=== PATIENT | male | born 1975 ===

== ENCOUNTER 2022-09-26 09:26 | Outpatient (REF) | payer OTHER, SELFPAY ==
[2022-09-26 11:13] LABS: MANUAL DIFF FLAG NO
[2022-09-26 11:42] LABS: Basophils Percent Auto 0.6 % (0-2); Eosinophils Absolute Auto 0.1 X10*3/uL (0.0-0.4); Eosinophils Percent Auto 1.4 % (0-4); Hematocrit 49.9 % (42.0-52.0); Hemoglobin 16.5 g/dl (14.0-18.0); Imm Gran Abs Auto 0.02 X10*3/uL (0.00-0.03); Imm Gran Pct Auto 0.4 % (0.0-0.4); Lymphocytes Absolute Auto 1.6 X10*3/uL (1.2-4.9); Lymphocytes Percent Auto 32.3 % (20-40); Mean Corpuscular HGB Conc 33.1 g/dl (31.0-36.0); Mean Corpuscular Hemoglobin 29.5 pg (27.0-33.0); Mean Corpuscular Volume 89.1 fL (80.0-98.0); Mean Platelet Volume 9.9 fL (9.4-12.4); Monocytes Absolute Auto 0.6 X10*3/uL (0.1-1.2); Neutrophils Absolute Auto 2.6 x10*3/uL (2.0-8.3); Neutrophils Percent Auto 53.3 % (45-73); Platelet Count 203 X10*3/uL (160-400); Red Cell Distribution Width 13.1 % (11.0-16.0); White Blood Count 4.8 X10*3/uL (4.8-10.8)
[2022-09-26 13:40] LABS: Estimated Average Glucose 103 mg/dL; Hemoglobin A1c % 5.2 %
[2022-09-26 15:15] LABS: Alanine Aminotransferase 19 U/L (0-40); Albumin Level 4.6 g/dL (3.5-5.0); Alkaline Phosphatase 68 U/L (39-117); Anion Gap 17 (12-20); Aspartate Amino Transferase 17 U/L (5-37); Bilirubin Direct 0.3 mg/dL (0.0-0.5); Bilirubin Total 0.9 mg/dL (0.0-1.0); Blood Urea Nitrogen 12 mg/dL (9-16); Calcium 9.8 mg/dL (8.4-10.2); Carbon Dioxide 25 mmol/L (22-29); Chloride 103 mmol/L (96-108); Cholesterol 129 mg/dL; Estimated Glomerular Filt Rate > 60; Glucose Random 85 mg/dL (60-115); HDL Cholesterol 51 mg/dL; LDL Cholesterol Calculated 68 mg/dl; Potassium 3.5 mmol/L (3.3-5.1); Sodium 141 mmol/L (135-145); Total Protein 7.4 g/dL (6.5-8.0); Triglycerides 52 mg/dL
[2022-09-27 04:20] LABS: HIV AB/AG Nonreactive (Nonreactive); HIV Num 1 0.05 S/CO (0.00-0.99)
[2022-09-27 04:41] LABS: ~Hepatitis C Antibody Nonreactive (Nonreactive)
== END 2022-09-26 09:27 | disposition home or self-care (01) ==
LOC: HO.HHCL 09:26
PROVIDERS: Visit Provider Family Medicine
DX: Z00.00 Encounter for general adult medical examination without abnormal findings (principal); Z11.4 Encounter for screening for human immunodeficiency virus [HIV]; Z11.3 Encounter for screening for infections with a predominantly sexual mode of transmission; H91.93 Unspecified hearing loss, bilateral; E78.5 Hyperlipidemia, unspecified; Z13.1 Encounter for screening for diabetes mellitus
CPT/HCPCS: 36415; 80048; 80061; 80076; 83036; 85025; 86803; 87389

== ENCOUNTER 2022-12-08 08:51 | Outpatient (REF) | payer OTHER, SELFPAY ==
[2022-12-12 12:54] LABS: Testosterone, Total 534 ng/dL (250-1100)
== END 2022-12-08 08:52 | disposition home or self-care (01) ==
LOC: HO.HHCL 08:51
PROVIDERS: Visit Provider Family Medicine
DX: N52.9 Male erectile dysfunction, unspecified (principal)
CPT/HCPCS: 36415; 84403

== ENCOUNTER 2023-10-12 10:54 | Outpatient (REF) | payer OTHER, SELFPAY ==
[2023-10-12 12:02] LABS: Cholesterol 140 mg/dL (<200); HDL Cholesterol 43 mg/dL (>40); LDL Cholesterol Calculated 83 mg/dL (<100); Triglycerides 70 mg/dL (<150)
[2023-10-12 12:25] LABS: HIV AB/AG Nonreactive (Nonreactive); HIV Num 1 0.05 S/CO (0.00-0.99)
== END 2023-10-12 10:55 | disposition home or self-care (01) ==
LOC: HO.HHCL 10:54
PROVIDERS: Visit Provider Family Medicine
DX: Z00.00 Encounter for general adult medical examination without abnormal findings (principal); Z11.3 Encounter for screening for infections with a predominantly sexual mode of transmission
CPT/HCPCS: 36415; 80061; 87389

== ENCOUNTER 2024-09-05 13:45 | Outpatient (AMB) | payer OTHER, SELFPAY ==
[2024-09-05 14:08] VITALS: BP 104/60; PULSE 83; TEMP 37; O2SAT 97; BMI 26.6
--- NOTE | 2024-09-05 14:08 | MHC.OFFWIV ---
Intake Vital Signs 09/05/24 14:08 Height 5 ft 7 in Weight 170 lb BMI 26.6 BP 104/60 Blood Pressure Location Rt brachial Position Sitting Pulse 83 Pulse Source Pulse Oximeter Temp 98.6 F Temp Source Oral Pulse Oximetry (%) 97 Oxygen Delivery Method Room Air Intake Visit Reasons: EP-headaches Intake Note: presents with left hip pain for about 4 years, increases when standing- denies injury Allergies No Known Allergies Allergy (Verified 09/05/24 14:11) Do you need a note to return to daycare/school/sports/work: Yes Return to daycare/school/sports/work/other note: work HPI HPI Comments History of Present Illness Details [facility] video inpatient care manager rn used for this visit History - The patient is a 48-year-old hearing impaired male presenting with left hip pain and tightness. - The patient reports left hip pain and tightness, which initially occurred in 2021, with an x-ray at that time showing no significant findings. - The pain intensified in February or March of this year and has progressively worsened. - The pain is localized to the lateral left hip, does not radiate to the groin, and is exacerbated by standing or walking. - The patient has not attempted any medication for relief. Physical Exam General: Cooperative, healthy appearing, comfortable, no acute distress and well developed Orientation: Patient oriented x3 Limitations: hearing impaired Head: Normal to inspection Ears: impaired Nose: Normal External nose present Face and sinus: Normal facial exam Mouth: normal, moist oral mucosa Eyes: Appearance normal, both eyes and all related structures Neck: Normal visual inspection and Yes full ROM Respiratory: Normal respiratory effort Skin: no rashes or lesions noted Neuro: Patient oriented x3, gait normal Extremities: moving all extremities normally, TTP lateral left hip Review of Systems Const All systems reviewed & are unremarkable except as noted in HPI and below Physical Exam Vital Signs: Last Vital Signs Temp 98.6 F 09/05/24 14:08 Pulse 83 09/05/24 14:08 BP 104/60 09/05/24 14:08 Pulse Ox 97 09/05/24 14:08 Oxygen Delivery Method Room Air 09/05/24 14:08 BMI result Body Mass Index 26.6 Assessment & Plan Assessment & Plan (1) Trochanteric bursitis, left hip: Code(s): M70.62 - Trochanteric bursitis, left hip Plan: Patient was informed and verbally consented to the use of an ambient scribe for clinic note documentation during this visit Left Hip Trochanteric Bursitis - Recommended rest, ice application, and Aleve 220 mg, 2 tablets every 12 hours for 3 to 4 days then use as needed. - Advised to ice the area for 20 minutes several times throughout the day. - Follow-up with primary care physician on September 19 for reassessment and possible x-ray if no improvement. - Discussed potential use of oral steroids or steroid injection if symptoms persist. Coding Level of Care Code New Pt Level 3 (70018) Diagnoses Trochanteric bursitis, left hip M70.62
--- OUTSIDE RECORDS SUMMARY | 2024-09-05 14:58 | XMS_ITS | Encounter Summary ---
Author Organization [employer] Address [address] [facility] [address] [address] [facility] [address] 7[address] [place] [address] Care Team Providers Care Faculty Physician Name Role Phone Sophie Magallon MD Primary Care Provider [phone] Favian Adan MD Unavailable [phone] Encounter Details Date Type Department Care Team (Late st Contact Info) Description 01/04/2024 Telephone [facility] [address], [place] [phone] Sophie Magallon MD [address] [place] [address] Social History Tobacco Use Types Packs/Day Years Used Date Smoking Tobacco: Never Smokeless Tobacco: Never Alcohol Use Standard Drinks/Week Comments Yes 0 (1 standard drink = 0.6 oz pur e alcohol) Depression Answer Date Recorded Patient Health Questionnaire-9 Score 1 10/21/2023 Patient Health Questionnaire-9 Score 1 10/21/2023 Last PHQ-9: Questionnaire Data Not on file 0 10/21/2023 Housing Stability Answer Date Recorded What is your housing situation today? I have emmanuel carbajal 12/12/[address] you li ve. Do you have problems with any of the following? None of the above 12/12/2022 Food Insecurity Answer Date Recorded Within the past 12 months, y ou worried that your food would run out before you got money to buy more: Never True 12/12/2022 Within the past 12 months,th e food you bought just didn't last and you didn't have enough money to get more: Never True Transportation Answer Date Recorded In the past 12 months, has l ack of transportation kept you from medical appts, meetings, work or from getting things needed for daily living? No 04/30/2023 Utilities Answer Date Recorded In the past 12 months, has t he electric, gas, oil or water company threatened to shut off services in your home? No 12/12/2022 Depression Answer Date Recorded Patient Health Questionnaire-2 Score 1 10/21/2023 Internet Access Answer Date Recorded Internet Access Q1 Yes 10/26/2023 Internet Access Q2 Not on file 10/26/2023 Sex and Gender Information Value Date Recorded Sex Assigned at Male 09/22/2022 10:48 AM EDT Legal Sex Male 2:21 PM EDT Gender Identity Male 09/22/2022 10:48 AM EDT Sexual Orientation Orozco 10/01/2022 4: 26 PM EDT documented as of this encounter Miscellaneous Notes * Telephone Encounter - Alanis Cano - 01/04/2024 12:47 PM EST Tc from pt requesting a callback he's been waiting since 12/29/2023 documented in this encounter Plan of Treatment Upcoming Encounters Date Type Department Care Team (Late st Contact Info) Description 09/14/2024 3:30 PM EDT Office Visit [facility] [address] [place] [address] Sophie Magallon MD [address] [place] [address] 09/16/2024 8:00 AM EDT Office Visit [facility] AD[facility] DENTAL [address] [place] [address] Calli, Odilia [address] [place] [address] documented as of this encounter Visit Diagnoses Not on filedocumented in this encounter Additional Health Concerns Assessment Noted Time PHQ-9 Depression Total Score: 1 10/21/19 24 11:21 AM EDT documented as of this encounter Care Teams Faculty Physician Relationship Specialty Start Date End Date Sophie Magallon MD [address] [place] [address] PCP - General Family Medicine 07/31/22 Favian Adan MD [address] [facility] [place] [address] Otolaryngology 03/07/24 Dr. Dagmar Albright [facility] [place], [place] Gastroenterology 03/07/24 documented as of this encounter
--- OUTSIDE RECORDS SUMMARY | 2024-09-05 14:58 | XMS_ITS | Clinical Summary ---
Author Organization [facility] Address [address] [place] [address] Care Team Providers Care Autobody Technician Name Role Phone Sophie Magallon Reji Primary Care Provider Allergies No known active allergies Medications omeprazole (PriLOSEC) 20 mg capsule 12/29/2022 Active rosuvastatin (CRESTOR) 5 mg tablet Take 5 mg by mouth daily. 09/22/2022 Active ipratropium (ATROVENT) 0.03% nasal spray 01/26/2023 Active Social History Tobacco Use Types Packs/Day Years Used Date Smoking Tobacco: Never Smokeless Tobacco: Never Tobacco Cessation:Counseling Given: Not Answered Sex and Gender Information Value Date Recorded Sex Assigned at Not on file Legal Sex Male 1:30 PM EST Gender Identity Not on file Sexual Orientation Not on file Last Filed Vital Signs Vital Sign Reading Time Taken Comments Blood Pressure 126/85 04/29/2023 10:32 AM EST Pulse 80 04/29/2023 10:32 AM EST Temperature - - Respiratory Rate - - Oxygen Saturation - - Inhaled Oxygen Concentration - - Weight - - Height - - Body Mass Index - - Plan of Treatment Health Maintenance Due Date Last Done Comments Cologuard 1975 Colon Cancer Screening 1975 Colonoscopy 1975 FOBT / Fit Test 1975 HIV Screening 1975 Sigmoidoscopy 1975 Hepatitis B Vaccines (3 of 3 - 19+ 3-dose series) 06/04/2023 01/05/2023, 12/03/2022 COVID-19 Vaccine (2023-2 5 season) 2023 Alcohol/Substance Use Screening 02/24/2024 Influenza Vaccine (#1) 2024 12/03/2022 DTaP,Tdap,and Td Vaccines (2 - Td or Tdap) 12/03/2032 12/03/2022 RSV Vaccine (60+ years old a nd patients) (1 - 1-dose 75+ series) 2052 Pneumococcal Vaccine: Pediatric (0-5 Years) and At-Risk Patients (6-50 Years) Aged Out No longer eligible based on patient's age to complete this topic Insurance [address] [place], [place] [phone] [place] [address] Care Teams Autobody Technician Relationship Specialty Start Date End Date [place], Sophie Mendoza [address] [place] [id number] PCP - General Family Medicine 01/28/23
== END 2024-09-05 14:41 | disposition home or self-care (01) ==
PROVIDERS: PCP Family Medicine; Visit Provider Physician Assistant
DX: M70.62 Trochanteric bursitis, left hip (principal)

== ENCOUNTER → 2024-09-05 13:45 | Outpatient (BNVA) | payer OTHER, SELFPAY | PROVIDERS: PCP Family Medicine; Visit Provider Physician Assistant | DX: M70.62 Trochanteric bursitis, left hip (principal) | CPT/HCPCS: 99202 ==

== ENCOUNTER 2024-09-14 15:55 | Outpatient (REF) | payer OTHER, SELFPAY ==
--- NOTE | ~2024-09-14 | XR_ITS ---
EXAMINATION: XR CERVICAL SPINE CLINICAL INFORMATION: Chronic occipital headaches COMPARISON: None available. TECHNIQUE: 3 views of the cervical spine were obtained. FINDINGS: Cervicothoracic junction is obscured by over lapping bony and soft tissues. There are no prevertebral soft tissue or bony abnormalities demonstrated. No compression fractures or subluxations are identified. Alignment is maintained at the atlanto-axial articulation. The disc spaces are preserved. No endplate changes are seen. The prevertebral soft tissues are normal. The foramina are patent. XR/XR cervical spine 3V IMPRESSION: Unremarkable examination. Electronically signed by: Kal King MD 09/14/2024 04:31 PM EDT RP
--- NOTE | ~2024-09-14 | XR_ITS ---
EXAMINATION: XR HIP, LEFT CLINICAL INFORMATION: Chronic left lateral hip pain COMPARISON: None available. TECHNIQUE: Two views of the left hip. FINDINGS: There is mild axial joint space narrowing. Lateral Center edge angle measured 53 There are no other abnormalities in the hip. degrees. XR/XR hip LT min 2V IMPRESSION: Coxa profunda. Mild axial joint space narrowing. Electronically signed by: Kal King MD 09/14/2024 04:30 PM EDT
--- OUTSIDE RECORDS SUMMARY | 2024-09-14 15:57 | XMS_ITS | Clinical Summary ---
Author Organization [facility] Address [address] [place] [address] Care Team Providers Care Rhinologist Name Role Phone Sophie Magallon Reji Primary [...] to complete this topic Insurance [address] [place], [place] [id number] [place] [address] Care Teams Rhinologist Relationship Specialty Start Date End Date [place], Sophie Mendoza [address] [place] [phone] PCP - General Family Medicine 01/28/23
--- OUTSIDE RECORDS SUMMARY | 2024-09-14 15:58 | XMS_ITS | Clinical Summary ---
Author Organization [facility] Address [address] [address] Phone Care Team Providers Care Lead Athlete Name Role Phone Sophie Magallon MD Primary Care Provi sandro Allergies No known active allergies Medications omeprazole (PRILOSEC) 20 MG tablet Take 20 mg by mouth daily. Active rosuvastatin (CRESTOR) 5 MG tablet Take 5 mg by mouth daily. Active senna (SENOKOT) 8.6 mg tablet Take 1 tablet by mouth daily. Active azelastine (ASTELIN) 137 mcg (0.1 %) nasal spray USE 2 SPRAYS IN EACH NOSTRIL EVERY DAY NEEDED FOR ALLERGIC RHINITIS Active Social History Tobacco Use Types Packs/Day Years Used Date Smoking Tobacco: Never Smokeless Tobacco: Never Tobacco Cessation:Counseling Given: Not Answered Alcohol Use Standard Drinks/Week Comments Not Currently 0 (1 standard drink = 0.6 oz pur e alcohol) Education Answer Date Recorded Are you interested in more education? Not on patricia e 11/26/2022 Are you concerned about learning? Not on file 11/26/2022 No 11/26/2022 No 11/26/2022 Digital Access Answer Date Recorded No 11/26/2022 No 11/26/2022 Reliable internet access at home? Not on file 11/26/2022 Device with a working camera? Not on file Intimate Partner Violence Answer Date R ecorded Are you denied basic needs s uch as food, clothing, or medical care? No 03/19/2023 In the past 12 months have y ou been in a relationship with a person who hurts, threatens, or tries to control you? No 03/19/2023 Are you denied basic needs s uch as food, clothing, or medical care? No 03/19/2023 In the past 12 months have y ou been in a relationship with a person who hurts, threatens, or tries to control you? No 03/19/2023 Sex and Gender Information Value Date Recorded Sex Assigned at Not on file Legal Sex Male 11:47 AM EDT Gender Identity Not on file Sexual Orientation Not on file Last Filed Vital Signs Vital Sign Reading Time Taken Comments Blood Pressure 114/66 03/19/2023 8:55 AM EST Pulse 85 03/19/2023 8:55 AM EST Temperature 36 C (96.8 F) 03/19/2023 7:02 AM EST Respiratory Rate 16 03/19/2023 8:55 AM EST Oxygen Saturation 97% 03/19/2023 8:55 AM EST Inhaled Oxygen Concentration - - Weight 77.1 kg (170 lb) 05/20/2024 10:48 AM EDT Height 170.2 cm (5' 7 ) 05/20/2024 10:48 AM EDT Body Mass Index 26.63 05/20/2024 10:48 AM EDT Plan of Treatment Health Maintenance Due Date Last Done Comments DEPRESSION SCREENING 1989 HEPATITIS C SCREENING 10/24/1995 HIV ONE-TIME SCREENING (18-6 5 YEARS) 10/24/1995 SCREENING FOR DIABETES 2012 COLOGUARD 2022 FIT TEST 2022 FOBT 2022 SIGMOIDOSCOPY 2022 VIRTUAL COLONOSCOPY 2022 COVID-19 VACCINE (1 - 2023-2 5 season) 2023 LIPID PANEL 10/11/2028 10/12/2023 Adult Td,Tdap Booster 12/03/2032 12/03/2022 COLONOSCOPY 03/19/2033 03/19/2023 COLORECTAL CANCER SCREENING 03/19/2033 SMOKING STATUS SCREENING (On ce After 26 Yrs) Completed 05/20/2024 HEPATITIS A VACCINES Aged Out No long er eligible based on patient's age to complete this topic HIB VACCINES Aged Out No longer eligi ble based on patient's age to complete this topic MENINGOCOCCAL VACCINES (ACWY) Aged Out No longer eligible based on patient's age to complete this topic MENINGOCOCCAL VACCINES (B) Aged Out N o longer eligible based on patient's age to complete this topic PNEUMOCOCCAL VACCINES (0-49 years) Aged Out No longer eligible based on patient's age to complete this topic Medical Devices Not on file Procedures Procedure Name Priority Date/Time Associated Diagnosis Comments ENDOSCOPY, COLON 03/19/2023 6:56 AM EST from Last 3 Months or Most Recently Relevant to Health Maintenance Results * ENDOSCOPY, COLON (03/19/2023 6:56 AM EST) Narrative Transcriptions Adama Waddell MD, MPH - 03/19/2023 6:56 AM EST [facility] Patient Name: Paulo Finley Attending MD:: ADAMA WADDELL MD, Procedure Date: 03/19/2023 6:56 AM Date of : 1975 Age: 47 Admit Type: Outpatient Gender: Male Room: [place] [address] Referring MD: Sophie Magallon MD Exam Type: Colonoscopy Indications: Screening for colorectal malignant neoplasm, Constipation Medications: Monitored Anesthesia Care Procedure: Informed consent was obtained from the patientafter discussion of the indications, limitations, alternatives, benefits, and risks of the procedure. Risks specifically discussed include but are not limited to medication reactions, missed lesions, bleeding, perforation, or the need for emergent surgery. Throughout the procedure, the patient's blood pressure, pulse, end-tidal CO2, and oxygensaturations were monitored continuously. The Colonoscope was introduced through the anus and advanced to the cecum, identified by appendiceal orifice and ileocecal valve. The colonoscopy was performed without difficulty. The patient tolerated the procedure well. The quality of the bowel preparation was evaluated using the BBPS (BostonBowel Preparation Scale) with scores of: Right Colon = 3, Transverse Colon = 3 and Left Colon = 3 (entiremucosa seen well with no residual staining, smallfragments of stool or opaque liquid). The total BBPS score equals 9. The ileocecal valve, appendiceal orifice, and rectum were photographed. Complications: No immediate complications. Findings: The perianal and digital rectal examinations were normal. The rectum, sigmoid colon, descending colon, transverse colon, ascending colon and cecumappeared normal. No additional abnormalities were found onretroflexion. Impression: - The rectum, sigmoid colon, descending colon, transverse colon, ascending colon and cecum arenormal. - No specimens collected. Recommendation: - Repeat colonoscopy in [address] Adama Waddell ADAMA WADDELL MD 03/19/2023 8:52:02 AM This report has been signed electronically. Number of Addenda: 0 Note Initiated On: 03/19/2023 6:56 AM Procedure Code(s): --- Professional --- 34234, Colonoscopy, flexible; diagnostic, including collection of specimen(s) by brushing or washing, when performed (separateprocedure) --- Technical --- 65840, Colonoscopy, flexible; diagnostic, including collection of specimen(s) by brushing or washing, when performed (separateprocedure) Diagnosis Code(s): --- Professional --- Z12.11, Encounter for screening for malignantneoplasm of colon K59.00, Constipation, unspecified --- Technical --- Z12.11, Encounter for screening for malignantneoplasm of colon K59.00, Constipation, unspecified CPT copyright 2021 [employer]. All rights reserved. The codes documented in this report are preliminary and upon wash plant operator reviewmay be revised to meet current compliance requirements. Procedure Date: 03/19/2023 6:56:[address] [place] [address] Sophie Magallon MD GI PROCEDURE ORDERA BLES Edited Result - Final from Last 3 Months or Most Recently Relevant to Health Maintenance Insurance [address] MEDICARE REPLACEMENT [address] [place] [address] [place] [address] [address] MEDICARE [place] [address] [address] MEDICARE REPLACEMENT Care Teams Lead Athlete Relationship Specialty Start Date End Date [place], Sophie Jiménez MD [address] [place] [address] PCP - General Family Medicine 11/26/22 Additional Source Comments The information contained in this document represents components of the legal health record. It is not the complete legal health record.[facility]
== END 2024-09-14 15:56 | disposition home or self-care (01) ==
LOC: HO.HHCX 15:55
PROVIDERS: Visit Provider Family Medicine
DX: M25.552 Pain in left hip (principal); G89.29 Other chronic pain; R51.9 Headache, unspecified
CPT/HCPCS: 72040; 73502

== ENCOUNTER → 2024-09-14 15:56 | Outpatient (BNV) | payer OTHER, SELFPAY | PROVIDERS: Visit Provider Radiology Diagnostic Radiology | DX: M24.252 Disorder of ligament, left hip (principal); M54.81 Occipital neuralgia | CPT/HCPCS: 72040; 73502 ==

== ENCOUNTER 2024-10-10 09:09 | Outpatient (REF) | payer OTHER, SELFPAY ==
--- OUTSIDE RECORDS SUMMARY | 2024-10-10 09:37 | XMS_ITS | Clinical Summary ---
Author Organization [facility] Address [address] [place] [address] Care Team Providers Care Patrol Man Name Role Phone Sophie Magallon Reji Primary Care Provider [phone] Allergies No known active allergies Medications omeprazole [...] to complete this topic Insurance [address] [place], [place] [id number] [place] [address] Care Teams Patrol Man Relationship Specialty Start Date End Date [place], Sophie Mendoza [address] [place] [phone] PCP - General Family Medicine 01/28/23
--- OUTSIDE RECORDS SUMMARY | 2024-10-10 09:37 | XMS_ITS | Encounter Summary ---
Author Organization [employer] Address [address] [facility] [address] [place] [address] Care Team Providers Care Pipe Out Worker Name Role Phone Sophie Magallon MD Primary Care Provider [phone] Favian Adan MD Unavailable [phone] Encounter Details Date Type Department Care Team (Late st Contact Info) Description 01/04/2024 Telephone [facility] [address] [place], [place] [phone] Sophie Magallon MD [address] [place] [address] Social History Tobacco Use Types Packs/Day Years [...] documented in this encounter Plan of Treatment Not on file documented as of this encounter Visit Diagnoses Not on filedocumented in this encounter Additional Health Concerns Assessment Noted Time PHQ-9 Depression Total Score: 1 10/21/19 24 11:21 AM EDT documented as of this encounter Care Teams Pipe Out Worker Relationship Specialty Start Date End Date Sophie Magallon MD [address] [place] [address] PCP - General Family Medicine 07/31/22 Favian Adan MD [address] [place] [address] Otolaryngology 03/07/24 Dr. Dagmar Albright [facility]asteroenterology [place], [place] Gastroenterology 03/07/24 documented as of this encounter
--- OUTSIDE RECORDS SUMMARY | 2024-10-10 09:37 | XMS_ITS | Clinical Summary ---
Author Organization [facility] Address [address] [address] Phone Care Team Providers Care Jet Dyeing Machine Operator Name Role Phone Sophie Magallon MD Primary [...] MD, MPH - 03/19/2023 6:56 AM EST [facility] Patient Name: Paulo Finley Attending MD:: ADAMA WADDELL MD, Procedure Date: 03/19/2023 6:56 AM Date of : 1975 Age: 47 Admit Type: Outpatient Gender: Male Room: [place] [address] Referring MD: Sophie Magallon MD Exam Type: [...] 6:56 AM Procedure Code(s): --- Professional --- 60103, Colonoscopy, flexible; diagnostic, including collection of specimen(s) by brushing or washing, when performed (separateprocedure) --- Technical --- 29428, Colonoscopy, flexible; diagnostic, including collection of specimen(s) by brushing or washing, when performed (separateprocedure) Diagnosis Code(s): --- Professional --- Z12.11, Encounter for screening for malignantneoplasm of colon K59.00, Constipation, unspecified --- Technical --- Z12.11, Encounter for screening for malignantneoplasm of colon K59.00, Constipation, unspecified CPT copyright 2021 [employer]. All rights reserved. The codes documented in this report are preliminary and upon spring former hand reviewmay be revised to meet current compliance requirements. Procedure Date: 03/19/2023 6:56:[address] [place] [address] Sophie Magallon MD GI PROCEDURE ORDERA BLES Edited Result - Final from Last 3 Months or Most Recently Relevant to Health Maintenance Insurance [address] MEDICARE REPLACEMENT [address] [place] [address] [place] [address] [address] REPLACEMENT [place] [address] MEDICARE REPLACEMENT Care Teams Jet Dyeing Machine Operator Relationship Specialty Start Date End Date [place], Sophie Jiménez MD [address] [place] [address] PCP - General Family Medicine 11/26/22 Additional Source Comments The information contained in this document represents components of the legal health record. It is not the complete legal health record.[facility]
[2024-10-10 12:03] LABS: Alanine Aminotransferase 35 U/L (0-40); Albumin Level 4.6 g/dL (3.5-5.0); Alkaline Phosphatase 87 U/L (39-117); Anion Gap 10 (12-20); Aspartate Amino Transferase 30 U/L (5-37); Blood Urea Nitrogen 16 mg/dL (9-16); Calcium 9.3 mg/dL (8.4-10.2); Carbon Dioxide 30 mmol/L (22-29); Chloride 105 mmol/L (96-108); Cholesterol 142 mg/dL (<200); Estimated Glomerular Filt Rate > 60; HDL Cholesterol 36 mg/dL (>40); Potassium 3.7 mmol/L (3.3-5.1); Sodium 141 mmol/L (135-145); Total Protein 7.4 g/dL (6.5-8.0); Triglycerides 120 mg/dL (<150)
== END 2024-10-10 09:10 | disposition home or self-care (01) ==
LOC: HO.HHCL 09:09
PROVIDERS: PCP Family Medicine; Visit Provider Family Medicine
DX: E78.5 Hyperlipidemia, unspecified (principal)
CPT/HCPCS: 36415; 80048; 80061; 80076

== ENCOUNTER 2024-11-11 08:54 | Outpatient (AMB) | payer OTHER, SELFPAY ==
--- NOTE | 2024-11-11 08:56 | MHC.OFFVIS ---
Vital Signs 11/11/24 08:57 Height 5 ft 7 in Weight 172 lb BMI 26.9 BP 125/65 Blood Pressure Location Lt brachial Position Sitting Pulse 93 Pulse Oximetry (%) 96 Oxygen Delivery Method Room Air Intake Visit Reasons: dysphagia Intake Note: Patient new consult for dysphagia. Patient need sign language Patient cc: swallowing difficulties with schocking sensation. Denies any other GI issues for today. 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 Referred by PCP for further evaluation of dysphagia. The patient reports chronic and intermittent difficulty swallowing that began over a decade ago while living in [place] and has persisted since relocating to the . Symptoms include a bothersome sensation of esophageal and throat closure, associated with regurgitation, feeling of stickiness, and frequent need to expectorate. Swallowing difficulty occurs with both solids and liquids, and is episodic in nature, sometimes resolving for up to a year but then returning. Heartburn is reported, described as a hot, acid sensation localized to the chest, which is partially responsive to omeprazole 20 mg daily taken 30 minutes before eating; adherence has recently improved. Regurgitation of liquids/food particles and postprandial stickiness are also prominent. History notable for constipation in the past, now improved, with current stool frequency every 2?3 days, Haralson type 3?4, without straining or recent rectal bleeding. Appetite is intact, and there is no unexplained weight change or noted nausea/vomiting (other than episodic gastric upset after suboptimal food intake). The patient is frustrated by the chronicity and impact of symptoms. Comorbidities include hyperlipidemia managed with atorvastatin. No diabetes, reported hypertension, or previous GI malignancy. No known drug allergies. Non-GI: Chronic post-nasal drip and nasal/sinus pressure attributed to allergy symptoms, with possible partial response to antihistamines in the past. Evaluated by multiple ENT specialists for persistent sinus issues. No cardiorespiratory comorbidities, prior interventions for testicular swelling in childhood, and no anesthesia complications reported. Patient denies: fever/chills, n/v, appetite changes, unintentional wt loss, ab pain or melena/hematochezia. Social hx: -ETOH use historically moderate, stopped ~2022 out of concern for GI symptoms; no current use -denies recreational drug use -non-smoker - family hx as below -denies personal hx of CA -denies significant cardiopulmonary history -tolerated anesthesia in the past without difficulty. [facility] Medical History (Updated 11/11/24 @ 11:33 by Laura Cadet CNP) Post-nasal drip Testicular abnormality Hyperlipemia Dysphagia Family History (Updated 11/11/24 @ 09:34 by Laura Cadet CNP) Family/Other Family history unknown Review of Systems Const Reports as per HPI ENT Reports as per HPI Card Reports as per HPI Resp Reports as per HPI GI Reports as per HPI Reports as per HPI Physical Exam Vital Signs: Last Vital Signs Pulse 93 11/11/24 08:57 BP 125/65 11/11/24 08:57 Pulse Ox 96 11/11/24 08:57 Oxygen Delivery Method Room Air 11/11/24 08:57 BMI result Body Mass Index 26.9 Const General: healthy appearing, no acute distress and well developed Nutritional Appearance: average body habitus Orientation/consciousness: patient oriented x3 HEENT Head: Yes normal to inspection, Yes normocephalic and Yes atraumatic Face and sinus: Yes normal facial exam Throat: Yes other (postnasal drip ) Eyes General: appearance normal, both eyes and all related structures Neck Neck: Yes normal visual inspection Resp Effort & Inspection: normal respiratory effort, able to speak in complete sentences, no tracheal deviation and symmetric chest movement Auscultation: clear to auscultation bilaterally Cardio Jugular venous distension: no JVD Rate: regular rate Rhythm: regular rhythm Heart sounds: S1 normal heart sound present, S2 normal heart sound present, no gallops and no murmurs Neuro General: patient oriented x3 Gait exam (Neuro): Normal gait present Psych Appearance: grossly normal Mental Status: mental status grossly normal Speech and movement: Normal speech and movement present Affect: normal affect Attitude: cooperative Thought process: Normal thought process present Thought content: Normal thought content present Insight: Good insight present (Psych) Judgement: Good judgement present (Psych) Assessment & Plan Assessment & Plan (1) Dysphagia: Code(s): R13.10 - Dysphagia, unspecified Category: Medical Qualifiers: Dysphagia type: unspecified Qualified Code(s): R13.10 - Dysphagia, unspecified Plan: Multiple-year history with both solids/liquids, associated with regurgitation and heartburn, partial but incomplete response to PPIs, episodic pattern, negative colonoscopy (2023 per pt, outside facility), and no weight loss or alarming features. Additional Testing: -unremakable CMP 10/10/24 ( normal kidney functions, LFTs) -Upper GI series w/ Barium swallow study (esophagram) ordered to evaluate swallowing mechanism, rule out structural or motility disorder. -Consider repeat upper endoscopy (EGD) pending results and access to prior [place] EGD records. Medication Management: -Increase omeprazole to 40 mg daily (single AM dose); reinforce adherence and appropriate administration (30 min pre-meal). -Fiber supplement (Citrucel) recommended for stool regularity, refill requested. Lifestyle Recommendations: -Maintain current alcohol abstinence. -Continue dietary modifications for stool regularity. -Consider [id number] antihistamines or nasal saline as empiric measures for post-nasal drip, though prior response limited. Follow-Up: Reassess in 3 months, or sooner if barium results concerning or symptoms worsen. (2) Post-nasal drip: Code(s): R09.82 - Postnasal drip Category: Medical Plan: Exam findings, patient report of chronic sinus pressure, previous ENT evaluations. Additional Testing:None at this time; ENT involved. Medication Management:OTC antihistamine (per patient preference), nasal steroid discussed, but patient prefers to avoid sprays. Lifestyle Recommendations:Environmental/allergen avoidance as able; symptom monitoring. Follow-Up:As above; revisit symptoms in subsequent GI follow-up as they may overlap with reflux symptoms. Plan Upper GI series order includes request for in person signal and communications maintainer. Written instructions provided on prep for imaging. Follow-up in 3 months after imaging or sooner as needed Time: I spent a total of 60 minutes on the date of encounter which includes: Preparing to see the patient (reviewed previous documentation, test results and medical history) Performing a medically appropriate exam and/or evaluation Ordering medications, tests, and procedures Documenting clinical information in the health record Orders: Orders FL upper GI w air w Ba Swallow Today R13.10 - Dysphagia, unspecified Medications: New omeprazole Take one tablet daily. Best taken 30 minutes before meal 40 mg PO DAILY 90 caps 1RF Coding Level of Care Code New Pt New Pt Level 5 (09366) Patient Type New Diagnoses Dysphagia, unspecified type R13.10 Dysphagia type: unspecified Post-nasal drip R09.82
[2024-11-11 08:57] VITALS: BP 125/65; PULSE 93; O2SAT 96; BMI 26.9
--- OUTSIDE RECORDS SUMMARY | 2024-11-11 09:39 | XMS_ITS | Encounter Summary ---
Author Organization [employer] [facility] Address [address]t [place] [address] Care Team Providers Care Polisher Implant Name Role Phone Sophie Magallon MD Primary Care Provider [phone] Favian Adan MD Unavailable [phone] Encounter Details Date Type Department Care Team (Late st Contact Info) Description 10/22/2022 Orders Only [facility] MEDICINE [address] [place] [address] [phone] Sophie Magallon MD [address] [place] [address] [phone] Abdominal pain, unspecified abdominal location (Primary Dx); Preventative health care; Dyslipidemia; Constipation, unspecified constipation type; Colon cancer screening Social History Tobacco Use Types Packs/Day Years Used Date Smoking Tobacco: Never Smokeless Tobacco: Never Alcohol Use Standard Drinks/Week Comments Yes 0 (1 standard drink = 0.6 oz pur e alcohol) Sex and Gender Information Value Date Recorded Sex Assigned at Male 09/22/2022 10:48 AM EDT Legal Sex Male 2:21 PM EDT Gender Identity Male 09/22/2022 10:48 AM EDT Sexual Orientation Orozco 10/01/2022 4: 26 PM EDT documented as of this encounter Plan of Treatment Not on file documented as of this encounter Visit Diagnoses Diagnosis Abdominal pain, unspecified abdominal location- Primary Preventative health care Routine general medical examination at a health care facility Dyslipidemia Other and unspecified hyperlipidemia Constipation, unspecified constipation type Colon cancer screening Special screening for malignant neoplasms, colon documented in this encounter Care Teams Polisher Implant Relationship Specialty Start Date End Date Sophie Magallon MD [address] [place] [address] [phone] PCP - General Family Medicine 07/31/22 Favian Adan MD [address] [facility] [place] [address] Otolaryngology 03/07/24 Dr. Dagmar Albright [facility] [place], [place] Gastroenterology 03/07/24 documented as of this encounter
--- OUTSIDE RECORDS SUMMARY | 2024-11-11 09:39 | XMS_ITS | Clinical Summary ---
Author Organization [facility] Address [address] [place] [address] Care Team Providers Care Button Riveter Name Role Phone Sophie Magallon Reji Primary Care Provider [phone] Allergies No known active allergies Medications omeprazole [...] - 19+ 3-dose series) 06/04/2023 01/05/2023, 12/03/2022 Alcohol/Substance Use Screening 02/24/2024 COVID-19 Vaccine ( - 2023-2 5 season) 2024 Influenza Vaccine (#1) 2024 12/03/2022 DTaP,Tdap,and Td Vaccines (2 - Td or Tdap) 12/03/2032 12/03/2022 RSV Vaccine (60+ years old a nd patients) (1 - 1-dose 75+ series) 2052 Pneumococcal Vaccine: Pediatric (0-5 Years) and At-Risk Patients (6-50 Years) Aged Out No longer eligible based on patient's age to complete this topic Insurance [address] [place], [place] [id number] [place] [address] Care Teams Button Riveter Relationship Specialty Start Date End Date Rolette, Sophie Mendoza [address] [place] [id number] PCP - General Family Medicine 01/28/23
--- OUTSIDE RECORDS SUMMARY | 2024-11-11 09:39 | XMS_ITS | Encounter Summary ---
Author Organization [employer] [facility] Address [address] [place] [address] [address] [place] [address] Care Team Providers Care Piling Cutter Name Role Phone Sophie Magallon MD Primary Care Provider [phone] Favian Adan MD Unavailable [phone] Encounter Details Date Type Department Care Team (Late st Contact Info) Description 09/15/[address] [facility] MEDICINE [address] [place] [address] Sophie Magallon MD [address] [place] [address] Social History Tobacco Use Types Packs/Day Years Used Date Smoking Tobacco: Never Assessed Sex and Gender Information Value Date Recorded Sex Assigned at Male 09/22/2022 10:48 AM EDT Legal Sex Male 2:21 PM EDT Gender Identity Male 09/22/2022 10:48 AM EDT Sexual Orientation Orozco 10/01/2022 4: 26 PM EDT documented as of this encounter Plan of Treatment Not on file documented as of this encounter Visit Diagnoses Not on filedocumented in this encounter Care Teams Piling Cutter Relationship Specialty Start Date End Date Sophie Magallon MD [address] [place] [address] PCP - General Family Medicine 07/31/22 Favian Adan MD [address] [facility] [place] [address] Otolaryngology 03/07/24 [facility] [place] [facility] 03/07/24 documented as of this encounter
--- OUTSIDE RECORDS SUMMARY | 2024-11-11 09:39 | XMS_ITS | Encounter Summary ---
Author Organization [employer] [facility] Address [address] [place] [address] Care Team Providers Care Buffer Machine Name Role Phone Sophie Magallon MD Primary Care Provider [phone] Favian Adan MD Unavailable [phone] Reason for Visit * Reason Onset Date Comments Error 06/18/2023 Encounter Details Date Type Department Care Team ([facility] st Contact Info) Description 06/18/2023 Telephone [facility] MEDICINE [address] [place], [place] [phone] Sophie Magallon MD [address] [place], [place] [phone] Error Social History Tobacco Use Types Packs/Day Years Used Date Smoking Tobacco: Never Smokeless Tobacco: Never Alcohol Use Standard Drinks/Week Comments Yes 0 (1 standard drink = 0.6 oz pur e alcohol) Housing Stability Answer Date Recorded What is [...] t he electric, gas, oil or water [employer] threatened to shut off services in your home? No 12/12/2022 Sex and Gender Information Value Date Recorded Sex Assigned at Male 09/22/2022 10:48 AM EDT Legal Sex Male 2:21 PM EDT Gender Identity Male 09/22/2022 10:48 AM EDT Sexual Orientation Orozco 10/01/2022 4: 26 PM EDT documented as of this encounter Plan of Treatment Not on file documented as of this encounter Visit Diagnoses Not on filedocumented in this encounter Care Teams Buffer Machine Relationship Specialty Start Date End Date Sophie Magallon MD [address] [place] [address] PCP - General Family Medicine 07/31/22 Favian Adan MD [address] [place] [address] Otolaryngology 03/07/24 Dr. Dagmar Albright [facility]asteroenter[facility] [place], [place] Gastroenterology 03/07/24 documented as of this encounter
--- OUTSIDE RECORDS SUMMARY | 2024-11-11 09:39 | XMS_ITS | Encounter Summary ---
Author Organization [employer] [facility] Address [address] 7t [place] [address] Care Team Providers Care Manufacturing Project Manager Name Role Phone Sophie Magallon MD Primary Care Provider [phone] Favian Adan MD Unavailable [phone] Reason for Visit * Reason Onset Date Comments Returning Call 06/23/2023 Encounter Details Date Type Department Care Team ([facility] st Contact Info) Description 06/23/2023 Telephone [facility] MEDICINE [address] [place], [place] [phone] Sophie Magallon MD [address] [place], [place] [phone] Returning Call Social History Tobacco Use Types Packs/Day Years [...] the past 12 months, has t he [employer], gas, oil or water company threatened to shut off services in your home? No 12/12/2022 Sex and Gender Information Value Date Recorded Sex Assigned at Male 09/22/2022 10:48 AM EDT Legal Sex Male 2:21 PM EDT Gender Identity Male 09/22/2022 10:48 AM EDT Sexual Orientation Orozco 10/01/2022 4: 26 PM EDT documented as of this encounter Miscellaneous Notes * Telephone Encounter - Blayne Barrett - 06/23/2023 2:06 PM EDT Tc from pt stating received a call, script writer didn't see anything documented. Pt wanted to leave a preferred contact number at [phone]. documented in this encounter Plan of Treatment Not on file documented as of this encounter Visit Diagnoses Not on filedocumented in this encounter Care Teams Manufacturing Project Manager Relationship Specialty Start Date End Date Sophie Magallon MD [address] [place] [id number] PCP - General Family Medicine 07/31/22 Favian Adan MD [address] [place] [address] Otolaryngology 03/07/24 Dr. Dagmar Albright [facility] [place], [place] Gastroenterology 03/07/24 documented as of this encounter
--- OUTSIDE RECORDS SUMMARY | 2024-11-11 09:39 | XMS_ITS | Encounter Summary ---
Author Organization [facility] Address [address] [place] [phone] Phone Care Team Providers Care Binder Cutter Name Role Phone Sophie Magallon MD Primary Care Provi sandro Encounter Details Date Type Department Care Team (Late st Contact Info) Description 03/19/2023 Procedure Pass [facility] Endoscopy Admitting Dept Virtual Department [address] [place] [address] Social History Tobacco Use Types Packs/Day Years Used Date Smoking Tobacco: Never Smokeless Tobacco: Never Alcohol Use Standard Drinks/Week Comments Not Currently [...] on file Sexual Orientation Not on file documented as of this encounter Plan of Treatment Not on file documented as of this encounter Visit Diagnoses Not on filedocumented in this encounter Care Teams Binder Cutter Relationship Specialty Start Date End Date Wittmann, Sophie Jiménez MD [address] [place] [address] PCP - General Family Medicine 11/26/22 documented as of this encounter Additional Source Comments The information contained in this document represents components of the legal health record. It is not the complete legal health record.[facility]
--- OUTSIDE RECORDS SUMMARY | 2024-11-11 09:39 | XMS_ITS | Encounter Summary ---
Author Organization [employer] [facility] Address [address] [place] [address] [address] [place] [address] Care Team Providers Care Seed Collector Name Role Phone Sophie Magallon MD Primary Care Provider [phone] Favian Adan MD Unavailable [phone] Encounter Details Date Type Department Care Team (Late st Contact Info) Description 09/15/2022 Abstract [facility] MEDICINE [address] [place] [address] Sophie Magallon MD [address] [place] [address] Social History Tobacco Use Types Packs/Day Years [...] on filedocumented in this encounter Care Teams Seed Collector Relationship Specialty Start Date End Date Sophie Magallon MD [address] [place] [address] PCP - General Family Medicine 07/31/22 Favian Adan MD [address] [facility] [place] [place] [address] Otolaryngology 03/07/24 [facility] [place] [facility] 03/07/24 documented as of this encounter
--- OUTSIDE RECORDS SUMMARY | 2024-11-11 09:39 | XMS_ITS | Clinical Summary ---
Author Organization [facility] Address [address] [address] Phone Care Team Providers Care Research Animal Attendant Name Role Phone Sophie Magallon MD Primary [...] FOBT 2022 SIGMOIDOSCOPY 2022 VIRTUAL COLONOSCOPY 2022 INFLUENZA VACCINE (#1) 2024 COVID-19 VACCINE (1 - 2023-2 5 season) 2024 LIPID PANEL 10/11/2028 10/12/2023 Adult Td,Tdap Booster [...] MD, MPH - 03/19/2023 6:56 AM EST [facility] Patient Name: Paulo Finley Attending MD:: AADMA WADDELL MD, Procedure Date: 03/19/2023 6:56 AM Date of : 1975 Age: 47 Admit Type: Outpatient Gender: Male Room: [place] [address] Referring MD: Sophie Magallon MD Exam Type: [...] 6:56 AM Procedure Code(s): --- Professional --- 44771, Colonoscopy, flexible; diagnostic, including collection of specimen(s) by brushing or washing, when performed (separateprocedure) --- Technical --- 28946, Colonoscopy, flexible; diagnostic, including collection of specimen(s) by brushing or washing, when performed (separateprocedure) Diagnosis Code(s): --- Professional --- Z12.11, Encounter for screening for malignantneoplasm of colon K59.00, Constipation, unspecified --- Technical --- Z12.11, Encounter for screening for malignantneoplasm of colon K59.00, Constipation, unspecified CPT copyright 2021 [employer] [place] [employer]. All rights reserved. The codes documented in this report are preliminary and upon rigger apprentice reviewmay be revised to meet current compliance requirements. Procedure Date: 03/19/2023 6:56:49 AM [address] [place] [address] Sophie Magallon MD GI PROCEDURE ORDERA BLES Edited Result - Final from Last 3 Months or Most Recently Relevant to Health Maintenance [place] [address] MEDICARE REPLACEMENT [address] [place] [id number] [place] [address] MEDICARE REPL[address]EMENT [address] [place], [place] [phone] [place] [address] [place] [address] [place] [address] CARE MEDICARE REPLACEMENT [facility] CARE MEDICARE REPLACEMENT [facility] CARE MEDICARE REPLACEMENT Care Teams Research Animal Attendant Relationship Specialty Start Date End Date [place], Sophie Jiménez MD [address] [place] [id number] PCP - General Family Medicine 11/26/22 Additional Source Comments The information contained in this document represents components of the legal health record. It is not the complete legal health record.[facility]
--- OUTSIDE RECORDS SUMMARY | 2024-11-11 09:39 | XMS_ITS | Clinical Summary ---
Author Organization [employer] Address [address] [place] [address] Care Team Providers Care Public Safety Telecommunicator Name Role Phone Sophie Magallon MD Primary Care Provider [phone] Favian Adan MD Unavailable [phone] Allergies No known active allergies Medications senna (Senokot) 8.6 MG tabletIndication s:Constipation, unspecified constipation type TAKE 2 TABLETS BY MOUTH EVERY NIGHT AT BEDTIME 120 tablet 3 3 Active cetirizine (ZyrTEC) 10 MG tabletIndication s:Seasonal allergies Take 1 tablet (10 mg) by mouth Once per day. 90 tablet 3 4 Active Additional Information Patient not taking.Reason: Pt states not taking, Reported on 09/16/2024 ketoconazole (NIZOral) 2 % shampooIndicatio ns:Dandruff APPLY TOPICALLY TO THE SCALP 2 TIMES EVERY WEEK. LEAVE ON 5 MINUTES THEN WASH OFF 4 Active triamcinolone (Kenalog) 0.025 % creamIndications :Atopic Dermatitis,Pruri tus Apply 1 Application. topically 2 times daily. Apply sparingly to affected area Twice daily 15 g 4 Active hydrocortisone (Anusol-HC) 2.5 % rectal creamIndications :Hemorrhoids, unspecified hemorrhoid type Insert into the rectum 2 times daily. 28 g 4 Active azelastine (Astelin) 0.1 % nasal sprayIndications :Seasonal allergies USE 2 SPRAYS IN EACH NOSTRIL EVERY DAY NEEDED FOR ALLERGIC RHINITIS 30 mL 3 4 Active rosuvastatin (Crestor) 5 MG tabletIndication s:Dyslipidemia Take 1 tablet (5 mg) by mouth Once per day. 30 tablet Active omeprazole (PriLOSEC) [address] capsuleIndicatio ns:Dysphagia, unspecified type Take 1 capsule (20 mg) by mouth 2 times daily. Do not crush or chew. 30 capsule Active Ciclopirox 1 % shampoo APPLY TOPICALLY TO THE SCALP 2 TO 3 TIMES WEEKLY. LEAVE ON 5 MINUTES THEN WASH OFF Active Active Problems Problem Noted Date Diagnosed Date Left hip pain 09/15/2024 Overview (09/15/2024): Left hip pain since at least 2020. Lateral. No evidence of inflammation. Pain continuing despite NSAIDs. -ordered x-ray 09/14/24 Xr 09/14/24 IMPRESSION: Coxa profunda. Mild axial joint space narrowing. -Referral to physical therapy 09/15/24 Assessment & Plan (09/15/2024 10:06 AM EDT): Left hip pain since at least 2020. Lateral. No evidence of inflammation. Pain continuing despite NSAIDs. -ordered x-ray 09/14/24 Xr 09/14/24 IMPRESSION: Coxa profunda. Mild axial joint space narrowing. -Referral to physical therapy 09/15/24 Orders: XR Hip 2 or 3 Views Left; Future Referral to Physical Therapy; Future Sputum production 03/31/2024 Overview (03/31/2024): Reports increased thick but clear mucusy sputum that pt is spitting up. No painful or difficulty swallowing. Denies any acid reflux or burning. -discussed that these symptoms do not warrant and EGD as per patient's request. -encouraged to drink more fluids and monitor sputum for any discoloration. Assessment & Plan (09/15/2024 10:06 AM EDT): Reports increased thick but clear mucusy sputum that pt is spitting up. No painful or difficulty swallowing. Denies any acid reflux or burning. -discussed that these symptoms do not warrant and EGD as per patient's request. -encouraged to drink more fluids and monitor sputum for any discoloration. Assessment & Plan (03/31/2024 9:47 AM EST): Reports increased thick but clear mucusy sputum that pt is spitting up. No painful or difficulty swallowing. Denies any acid reflux or burning. -discussed that these symptoms do not warrant and EGD as per patient's request. -encouraged to drink more fluids and monitor sputum for any discoloration. Overweight 03/30/2024 Overview (03/31/2024): Discussed weight, diet, exercise with patient in relation to health conditions. Used motivational interviewing to illicit change talk and established initial goals with patient. Assessment & Plan (09/15/2024 10:06 AM EDT): Discussed weight, diet, exercise with patient in relation to health conditions. Used motivational interviewing to illicit change talk and established initial goals with patient. Assessment & Plan (03/31/2024 9:38 AM EST): Discussed weight, diet, exercise with patient in relation to health conditions. Used motivational interviewing to illicit change talk and established initial goals with patient. Localized gingival recession 03/11/2024 Dandruff 10/21/2023 Hemorrhoids 10/21/2023 Overview (10/21/2023): Will prescribe steroid cream and advised pt to not use regularly, only PRN for pain/itching since it can cause irritation to skin. Assessment & Plan (10/21/2023 10:49 AM EDT): Will prescribe steroid cream and advised pt to not use regularly, only PRN for pain/itching since it can cause irritation to skin. Dermatitis 10/21/2023 Overview (10/21/2023): -no wounds or signs of infection -prescribed Kenalog cream as pt has used in the past Assessment & Plan (10/21/2023 10:51 AM EDT): -no wounds or signs of infection -prescribed Kenalog cream as pt has used in the past Chronic nonintractable headache 08/04/2023 Overview (09/14/2024): -Chronic headaches -Resolved 07/2023. -Reports having headaches again 09/14/24 -ordered c-spine x-ray 09/14/24 Assessment & Plan (09/15/2024 10:06 AM EDT): -Chronic headaches -Resolved 07/2023. -Reports having headaches again 09/14/24 -c-spine x-ray 09/14/24 unremarkable Orders: XR CERVICAL SPINE 3V; Future Assessment & Plan (08/26/2023 9:31 AM EDT): -Chronic headaches -Resolved Assessment & Plan (08/04/2023 6:22 PM EDT): It could be related to recurrent sinus congestion, unable to obtain complete information due to above mentioned technical difficulties expressed by both the international organizer and patient. Patient agreed to have another appt scheduled with any provider as long as there was a live dental ceramist assistant. The CT scan and ENT valuation from 2022 in [place] will be scanned separately. Patient is aware of these dx but he wants further evaluation. He understands that with the information provided today, I don't think he needs additional information, rather rx of chronic sinusitis sxs BUT, that more information re ongoing sxs are needed in order to decide additional work up. He understands that a plain Xray of the head wont give us any accurate information re today's sxs. Cardiac risk counseling 07/23/2023 Overview (03/30/2024): Calculated 03/30/24: Low The 10-year ASCVD risk score (German DIALLO, et al., 2019) is: 1.4% Values used to calculate the score: Age: 48 years Sex: Male Is Non- : No Diabetic: No Tobacco smoker: No Systolic Blood Pressure: 124 mmHg Is BP treated: No HDL Cholesterol: 43 mg/dL Total Cholesterol: 140 mg/dL LDL 09/26/22 at goal :68-Tobacco cessation: not applicable -Statin therapy: rosuvastatin 5mg -Importance of moderate physical activity and nutrition interventions discussed. Assessment & Plan (10/21/2023 10:40 AM EDT): Calculated 10/21/23: Low The 10-year ASCVD risk score (German DIALLO, et al., 2019) is: 1.3% Values used to calculate the score: Age: 47 years Sex: Male Is Non- : No Diabetic: No Tobacco smoker: No Systolic Blood Pressure: 124 mmHg Is BP treated: No HDL Cholesterol: 43 mg/dL Total Cholesterol: 140 mg/dL LDL 09/26/22 at goal :68-Tobacco cessation: not applicable -Statin therapy:rosuvastatin 5mg -Importance of moderate physical activity and nutrition interventions discussed. Dental plaque 03/31/2023 Cystic acne 12/03/2022 Overview (12/03/2022): -Pt will bring name of cream he uses, no evidence of infection at this time. Assessment & Plan (05/11/2023 11:46 AM EDT): -Pt will bring name of cream he uses, no evidence of infection at this time. Assessment & Plan (12/03/2022 11:07 AM EDT): -Pt will bring name of cream he uses, no evidence of infection at this time. Erectile dysfunction 12/03/2022 Overview (12/03/2022): -Will check testosterone and will follow up in 2 months Assessment & Plan (05/11/2023 11:46 AM EDT): -Will check testosterone and will follow up in 2 months Assessment & Plan (12/03/2022 11:12 AM EDT): -Will check testosterone and will follow up in 2 months Constipation 10/29/2022 Overview (12/03/2022): Trial of patricio 23 -Saw MARTHA Valerio on 11/26/2022 Assessment & Plan (12/03/2022 10:32 AM EDT): Trial of patricio 23 -Saw MARTHA Valerio on 11/26/2022 Deafness 09/22/2022 Overview (03/31/2024): -Audiology referral placed 09/22/2022. -Patient needs restorative care technician for all visits. Please make note of this in any referrals. -Please check with patient whether a live/in person international organizer will be needed or a virtual international organizer will be ok. Please note minimum 2 weeks notice to [place] [employer] needed before live international organizer. Assessment & Plan (09/15/2024 10:06 AM EDT): Orders: Referral to Physical Therapy; Future Assessment & Plan (03/31/2024 9:48 AM EST): -Audiology referral placed 09/22/2022. -Patient needs restorative care technician for all visits. Please make note of this in any referrals. -Please check with patient whether a live/in person international organizer will be needed or a virtual international organizer will be ok. Please note minimum 2 weeks notice to [place] [employer] needed before live international organizer. Assessment & Plan (10/21/2023 10:41 AM EDT): -Audiology referral placed 09/22/2022. -Patient needs restorative care technician for all visits. Please make note of this in any referrals. -Please check with patient whether a live/in person international organizer will be needed or a virtual international organizer will be ok. Please note minimum 2 weeks notice to [place] [employer] needed before live international organizer. Assessment & Plan (05/11/2023 11:37 AM EDT): -Audiology referral placed 09/22/2022. -Patient needs restorative care technician for all visits. Please make note of this in any referrals. Assessment & Plan (09/22/2022 11:44 AM EDT): Audiology referral done 09/22/2022. Other specified health status 09/22/2022 Overview (09/14/2024): -next comprehensive annual evaluation due after 09/14/25 -eye care -referral to [facility] placed 09/22/22 -Advised to seek dental care 08/2022 -health care proxy filed on 05/11/2023 Assessment & Plan (09/15/2024 10:06 AM EDT): -next comprehensive annual evaluation due after 09/14/25 -eye care -referral to [facility] placed 09/22/22 -Advised to seek dental care 08/2022 -health care proxy filed on 05/11/2023 Assessment & Plan (05/11/2023 11:39 AM EDT): -next physical exam due after 12/04/2023 -eye care -referral to [facility] placed 09/22/22 -Advised to seek dental care 08/2022 -health care proxy filed on 05/11/2023 Assessment & Plan (12/03/2022 10:41 AM EDT): -next physical exam due after 12/04/2023 -eye care -referral to [facility] placed 09/22/22 -Advised to seek dental care 08/2022 Assessment & Plan (09/22/2022 11:12 AM EDT): -next physical exam due after 11/2022. -eye care facilitated by -dental home is Colon cancer screening 09/22/2022 Overview (03/21/2023): -colonoscopy on 03/19/[address] Dagmar Manuel Impression: - The rectum, sigmoid colon, descending colon, transverse colon, ascending colon and cecum are normal. - No specimens collected. Recommendation: - Repeat colonoscopy in 10 years for screening purposes. Assessment & Plan (05/11/2023 11:40 AM EDT): -colonoscopy on 03/19/[address] Dagmar Manuel Impression: - The rectum, sigmoid colon, descending colon, transverse colon, ascending colon and cecum are normal. - No specimens collected. Recommendation: - Repeat colonoscopy in 10 years for screening purposes. Assessment & Plan (12/03/2022 10:40 AM EDT): -Pt has appt for colonoscopy on 03/19/2023 Dyslipidemia 09/22/2022 Overview (09/14/2024): Lab Results Component Value Date CHOL 140 10/12/2023 CHOL 129 09/26/2022 TRIG 70 10/12/2023 TRIG 52 09/26/2022 HDL 43 10/12/2023 HDL 51 09/26/2022 LDLCHOLCAL 83 10/12/2023 LDLCHOLCAL 68 09/26/2022 -continue lifestyle modification -continue rosuvastatin 5mg at bedtime -ordered HPF and FLP 09/14/24 Assessment & Plan (09/15/2024 10:06 AM EDT): Lab Results Component Value Date CHOL 140 10/12/2023 CHOL 129 09/26/2022 TRIG 70 10/12/2023 TRIG 52 09/26/2022 HDL 43 10/12/2023 HDL 51 09/26/2022 LDLCHOLCAL 83 10/12/2023 LDLCHOLCAL 68 09/26/2022 -continue lifestyle modification -continue rosuvastatin 5mg at bedtime -ordered HPF and FLP 09/14/24 Orders: Hepatic Function Panel; Future Lipid Panel, Standard; Future Basic Metabolic Panel; Future rosuvastatin (Crestor) 5 MG tablet; Take 1 tablet (5 mg) by mouth Once per day. Assessment & Plan (10/21/2023 10:41 AM EDT): Lab Results Component Value Date CHOL 140 10/12/2023 CHOL 129 09/26/2022 TRIG 70 10/12/2023 TRIG 52 09/26/2022 HDL 43 10/12/2023 HDL 51 09/26/2022 LDLCHOLCAL 83 10/12/2023 LDLCHOLCAL 68 09/26/2022 -continue lifestyle modification -continue rosuvastatin 5mg qhs Assessment & Plan (05/11/2023 11:40 AM EDT): Lab Results Component Value Date TRIG 52 09/26/2022 -continue lifestyle modifications -continue rosuvastatin 5mg qhs Assessment & Plan (12/03/2022 10:44 AM EDT): Lab Results Component Value Date TRIG 52 09/26/2022 -continue lifestyle modifications -continue rosuvastatin 5mg qhs Nasal obstruction 09/22/2022 Overview (09/14/2024): Patients greatest concern is chronic symptom of feeling nasal obstruction. Pt is adamant that he wants surgery despite continued discussion that there are not findings that warrant surgery -Patient saw folder operator, Dr. Adan on 12/25/2022 he prescribed Ipratropium spray as needed and return PRN -I saw pt in walk in clinic on 04/29/23. For this issues. Despite no recommendation for further imaging, pt is persistent on wanting a repeat sinus CT. -CT of paranasal sinuses dated 09/16/23 reveals no significant deviation of nasal septum. Clear sinuses. No suspicious bony lesions. No acute process noted. -ENT Dr. Henning 03/01/24 dx nasal congestion, nasal endoscopy with no findings to offer surgery to correct -referred to [facility] per patient's request, however discussed if insurance sharpe snot cover it is patient's responsibility to call and find a different specialist that is covered per pts request 03/31/24 -apt with Dr. Carl Henning 04/28/24 recommed make up operator for EGD to assess thickened saliva lower part of the throat. 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 Referred to Plastic surgery for consult. -Saw plastic Surgery 05/26/24, Reece Zelaya, who reports no anatomic cause of his nasal obstructive symptoms on nasal exam. When closing the left nares there is airflow through the right without evidence of nasal valve collpase and there is not evidence of static narrowing or collapse on exam. Discussed the lack of collapse and the importance of gentle and not vigorous nasal breathing. Without seeing evidence of an antomic cause on nasal exam I would not recommend nasal valve surgery as there is not a targeted area to correct and surgery would therefore not improve the symptoms that he is having. Recommend referral back to Dr. Rao Assessment & Plan (09/15/2024 10:06 AM EDT): Patients greatest concern is chronic symptom of feeling nasal obstruction. Pt is adamant that he wants surgery despite continued discussion that there are not findings that warrant surgery -Patient saw folder operator, Dr. Adan on 12/25/2022 he prescribed Ipratropium spray as needed and return PRN -I saw pt in walk in clinic on 04/29/23. For this issues. Despite no recommendation for further imaging, pt is persistent on wanting a repeat sinus CT. -CT of paranasal sinuses dated 09/16/23 reveals no significant deviation of nasal septum. Clear sinuses. No suspicious bony lesions. No acute process noted. -ENT Dr. Henning 03/01/24 dx nasal congestion, nasal endoscopy with no findings to offer surgery to correct -referred to [facility] per patient's request, however discussed if insurance sharpe snot cover it is patient's responsibility to call and find a different specialist that is covered per pts request 03/31/24 -apt with Dr. Carl Henning 04/28/24 recommed make up operator for EGD to assess thickened saliva lower part of the throat. 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 Referred to Plastic surgery for consult. -Saw plastic Surgery 05/26/24, Reece Zelaya, who reports no anatomic cause of his nasal obstructive symptoms on nasal exam. When closing the left nares there is airflow through the right without evidence of nasal valve collpase and there is not evidence of static narrowing or collapse on exam. Discussed the lack of collapse and the importance of gentle and not vigorous nasal breathing. Without seeing evidence of an antomic cause on nasal exam I would not recommend nasal valve surgery as there is not a targeted area to correct and surgery would therefore not improve the symptoms that he is having. Recommend referral back to Dr. Rao Assessment & Plan (03/31/2024 9:44 AM EST): Patients greatest concern is chronic symptom of feeling nasal obstruction. Pt is adamant that he wants surgery despite continued discussion that there are not findings that warrant surgery -Patient saw folder operator, Dr. Adan on 12/25/2022 he prescribed Ipratropium spray as needed and return PRN -I saw pt in walk in clinic on 04/29/23. For this issues. Despite no recommendation for further imaging, pt is persistent on wanting a repeat sinus CT. -CT of paranasal sinuses dated 09/16/23 reveals no significant deviation of nasal septum. Clear sinuses. No suspicious bony lesions. No acute process noted. -referred to [facility] per patient's request, however discussed if insurance sharpe snot cover it is patient's responsibility to call and find a different specialist that is covered. 03/31/24 Assessment & Plan (10/21/2023 10:42 AM EDT): Patients greatest concern is chronic symptom of feeling nasal obstruction. Pt is adamant that he wants surgery despite continued discussion that there are not findings that warrant surgery -Patient saw folder operator, Dr. Adan on 12/25/2022 he prescribed Ipratropium spray as needed and return PRN -I saw pt in walk in clinic on 04/29/23. For this issues. Despite no recommendation for further imaging, pt is persistent on wanting a repeat sinus CT. -CT of paranasal sinuses dated 09/16/23 reveals no significant deviation of nasal septum. Clear sinuses. No suspicious bony lesions. No acute process noted. Assessment & Plan (08/26/2023 9:31 AM EDT): -Has ENT appt on 01/02/2023 -Patient saw Dr. Adan on 12/25/2022 he prescribed Ipratropium spray as needed and return PRN -[facility] on 04/29/23. Despite no recommendation for further imaging, pt is persistent on wanting a repeat sinus CT. -ordered CT 08/26/23 Assessment & Plan (05/11/2023 12:03 PM EDT): -Has ENT appt on 01/02/2023 -Patient saw Dr. Adan on 12/25/2022 he prescribed Ipratropium spray as needed and return PRN Assessment & Plan (12/03/2022 10:33 AM EDT): -Has ENT appt on 01/02/2023 Mild acid reflux 09/22/2022 Resolved Problems Problem Noted Date Diagnosed Date Resolved Date Exercise counseling 03/30/2024 09/15/19 Assessment & Plan (03/31/2024 9:37 AM EST): Exercise Recommendations: At least 150 minutes of moderate-intensity physical activity per week, or an equivalent combination of moderate- and vigorous-intensity activity Dietary counseling 03/30/2024 Assessment & Plan (03/31/2024 9:37 AM EST): Dietary Recommendations: Fruits, vegetables, whole grains, protein foods, and fat-free or low-fat dairy products are healthy choices. Eat different types of protein foods in your diet. This can include seafood, lean meats, poultry, beans, peas, lentils, nuts, seeds, soy products, and eggs. Limit foods and beverages higher in added sugars, saturated fat, and sodium. Physical exam 12/03/2022 12/03/2022 Overview (12/03/2022): -Normal growth and development. -Anticipatory guidance discussed. -Preventative care / harm reduction discussed. -Prep offered, declined at this time Assessment & Plan (12/03/2022 11:05 AM EDT): -Normal growth and development. -Anticipatory guidance discussed. -Preventative care / harm reduction discussed. -Prep offered, declined at this time Encounters Date Type Department Care Team Description 10/10/2024 Telephone [facility] [address] [place] [address] Sophie Magallon MD Results 09/16/2024 8:00 AM EDT Office Visit [facility] [address] [place] [address] Odilia Mccurdy Localized gingival recession (Primary Dx); Dental plaque 09/15/2024 Results Follow-Up [facility] [address] [place] [address] Sophie Magallon MD XR Hip 2 or 3 Views Left 09/14/2024 3:30 PM EDT Office Visit [facility] [address] [place] [address] Sophie Magallon MD Nasal obstruction (Primary Dx); Left hip pain; Chronic nonintractable headache, unspecified headache type; Dyslipidemia; Sputum production; Overweight; Dietary counseling; Exercise counseling; Other specified health status; Dysphagia, unspecified type; Bilateral deafness 09/14/2024 Travel 09/13/2024 Telephone [facility] [address] [place] [address] Sophie Magallon MD CHART PREP from Last 3 Months Immunizations Immunization Administration Dates Next Due Hep B, adult 06/09/2023,01/05/2023,12/03/2022 Influenza injectable quadriv alent preservative free 12/03/2022 Influenza, IIV3, injectable 01/28/2005,0 03/19/2004,01/05/2003,2002 Influenza, seasonal, injecta ble, preservative free 12/18/2023 MMR 11/10/2002,01/19/1979 TD (adult), 2 Lf tetanus tox oid, preservative free, adsorbed 11/10/2002,11/10/1992 Tdap 12/03/2022 Family History Medical History Relation Name Comments Cancer Neg Hx Diabetes Neg Hx Heart disease Neg Hx Social History Tobacco Use Types Packs/Day Years Used Date Smoking Tobacco: Never Smokeless Tobacco: Never Tobacco Cessation:Counseling Given: Not Answered Alcohol Use Standard Drinks/Week Comments Yes 0 (1 standard drink = 0.6 oz pur e alcohol) Depression Answer Date Recorded Patient Health Questionnaire-9 Score 1 10/21/2023 Patient Health Questionnaire-9 Score 1 10/21/2023 Last PHQ-9: Questionnaire Data Not on file 0 10/21/2023 Housing Stability Answer Date Recorded What is your housing situation today? I have emmanuel sing 09/14/[address] you li ve. Do you have problems with any of the following? None of the above 09/14/2024 Food Insecurity Answer Date Recorded Within the past 12 months, y ou worried that your food would run out before you got money to buy more: Never True 09/14/2024 Within the past 12 months,th e food you bought just didn't last and you didn't have enough money to get more: Never True Transportation Answer Date Recorded In the past 12 months, has l ack of transportation kept you from medical appts, meetings, work or from getting things needed for daily living? No 09/14/2024 Utilities Answer Date Recorded In the past 12 months, has t he electric, gas, oil or water company threatened to shut off services in your home? No 09/14/2024 Depression Answer Date Recorded Patient Health Questionnaire-2 Score 0 09/14/2024 Internet Access Answer Date Recorded Internet Access Q1 No 09/14/2024 Internet Access Q2 I do not want or need it 08/24 Sex and Gender Information Value Date Recorded Sex Assigned at Male 09/22/2022 10:48 AM EDT Legal Sex Male 2:21 PM EDT Gender Identity Male 09/22/2022 10:48 AM EDT Sexual Orientation Orozco 10/01/2022 4: 26 PM EDT Last Filed Vital Signs Vital Sign Reading Time Taken Comments Blood Pressure 122/76 09/16/2024 8:16 AM EDT Pulse 86 09/14/2024 3:01 PM EDT Temperature 37.2 C (98.9 F) 09/14/2024 3:01 PM EDT Respiratory Rate 20 09/14/2024 3:01 PM EDT Oxygen Saturation 96% 09/14/2024 3:01 PM EDT Inhaled Oxygen Concentration - - Weight 77.6 kg (171 lb) 09/14/2024 3:01 PM EDT Height 167.6 cm (5' 6 ) 05/13/2024 11:14 AM EDT Body Mass Index 27.6 05/13/2024 11:14 AM EDT Plan of Treatment Health Maintenance Due Date Last Done Comments CT Colonography 1975 FIT DNA/Cologuard 1977 FIT 1975 FOBT 1975 Sigmoidoscopy 1975 Dental Oral Exam 09/09/2024 03/11/2024, 03/03/2023 COVID-19 Vaccine ( - season) 2024 Influenza Vaccine (#1) 2024 , 12/03/2022, 01/28/2005, Additional history exists Dental X-Ray: Bitewings 03/12/2025 03/11/2024, 03/03 Dental Prophylaxis 03/20/2025 09/16/2024, 0 03/11/2024, 09/15/2023, Additional history exists Family Planning (PISQ) 03/31/2025 03/31/2024 Alcohol/Substance Use Screening 09/14/2025 09/14/2024 Depression Screening 09/14/2025 09/14/2024, 10/21/19 24 Disability Screening 09/14/2025 09/14/2024 SDOH Screening 09/14/2025 09/14/2024 Tobacco Screening 09/16/2025 09/16/2024 Dental X-Ray: Full Mouth 03/04/2026 03/03/2023 Zoster Vaccines (1 of 2) 10/24/2027 Lipid Panel 10/10/2029 10/10/2024, 09/23, 09/26/2022 DTaP/Tdap/Td Vaccines (3 - Td or Tdap) 12/03/2032 12/03/2022, 11/10/2002, 11/10/1992 Colonoscopy 03/19/2033 03/19/2023 Colorectal Cancer Screening 03/19/2033 RSV Patients and Patients Aged 60 years or older (1 - 1-dose 75+ series) 2052 Hepatitis C Screening Completed 09/26/2022 Hepatitis B Vaccines Completed 06/09/2023, 01/05/2023, 12/03/2022 HIV Screening Completed 10/12/2023, 09/26/2022 HIB Vaccines Aged Out No longer eligi ble based on patient's age to complete this topic HPV Vaccines Aged Out No longer eligi ble based on patient's age to complete this topic Hepatitis A Vaccines Aged Out No long er eligible based on patient's age to complete this topic IPV Vaccines Aged Out No longer eligi ble based on patient's age to complete this topic Meningococcal B Vaccine Aged Out No l onger eligible based on patient's age to complete this topic Meningococcal Vaccine Aged Out No karrie madi eligible based on patient's age to complete this topic Pneumococcal Vaccine: Pediatrics (0 to 5 Years) and At-Risk Patients (6 to 49) Years Aged Out No longer eligible based on patient's age to complete this topic RSV under 20 months Aged Out No longe r eligible based on patient's age to complete this topic Rotavirus Vaccines Aged Out No longer eligible based on patient's age to complete this topic Procedures Procedure Name Priority Date/Time Associated Diagnosis Comments BASIC METABOLIC PANEL Routine 10/10/2024 9:17 AM EDT Dyslipidemia LIPID PANEL, STANDARD Routine 10/10/2024 9:17 AM EDT Dyslipidemia HEPATIC FUNCTION PANEL Routine 10/10/2024 9:17 AM EDT Dyslipidemia PROPHYLAXIS - ADULT Routine 09/16/2024 8 :00 AM EDT Localized gingival recession Dental plaque CASE PRESENTATION, DETAILED AND EXTENSIVE TREATMENT PLANNING Routine 09/16/2024 8:00 AM EDT Localized gingival recession Dental plaque ORAL HYGIENE INSTRUCTIONS Routine 09/16/2024 8:00 AM EDT Localized gingival recession Dental plaque XR CERVICAL SPINE 3V Routine 09/14/2024 3:27 PM EDT Chronic nonintractable headache, unspecified headache type XR HIP 2 OR 3 VIEWS LEFT Routine 09/14/2024 3:23 PM EDT Left hip pain BITEWINGS - 4 RADIOGRAPHIC IMAGES Routine 03/11/2024 9:00 AM EST Dental plaque Localized gingival recession PERIODIC ORAL EVALUATION - ESTABLISHED PATIENT Routine 03/11/2024 9:00 AM EST HIV 1/2 ANTIGEN/ANTIBODY, FOURTH GENERATION W/RFL Routine 10/12/2023 11:00 AM EDT Routine screening for STI (sexually transmitted infection) HM COLONOSCOPY Routine 03/19/2023 INTRAORAL - COMPLETE SERIES OF RADIOGRAPHIC IMAGES Routine 03/03/2023 10:00 AM EST HEPATITIS C ANTIBODY REFLEX Routine 09/26/2022 9:40 AM EDT from Last 3 Months or Most Recently Relevant to Health Maintenance Results * Hepatic Function Panel (10/10/2024 9:17 AM EDT) Bilirubin, Total 1.0 0.0 - 1.0 mg/dL [facility] Bilirubin, Direct 0.3 0.0 - 0.5 mg/dL [facility] Aspartate Amino Transferase 30 5 - 37 U/L [facility] Alanine Aminotransferase 35 0 - 40 U/L [facility] Total Protein 7.4 6.5 - 8.0 g/dL [facility] Albumin Level 4.6 3.5 - 5.0 g/dL [facility] Alkaline Phosphatase 87 39 - 117 U/L [facility] Blood Venous blood specimen / Unknown 10/10/2024 9:17 AM EDT 10/10/2024 11:10 AM EDT Sophie Magallon MD LAB BLOOD ORDERABLES Final Result [facility] [address] [place] [phone] * (ABNORMAL) Lipid Panel, Standard (10/10/2024 9:17 AM EDT) Triglycerides 120 <150 mg/dL [facility] Comment:Desirable Triglyceri de: less than 150 mg/dLBorderline High Triglyceride 150-199 mg/dLHigh Triglyceride: 200-499 mg/dLVery High Triglyceride: greater than or equal to 5OO mg/dL Cholesterol 142 <200 mg/dL [facility] Comment:Desirable Cholestero l: less than 200 mg/dLBorderline High Cholesterol: 200-239 mg/dLHigh Cholesterol: greater than 239 mg/dL LDL Cholesterol Calculated 82 <100 mg/dL [facility] Comment:Desirable LDL: less than 100 mg/dLNear Optimal/Above Optimal LDL: 110- 129 mg/dLBorderline High LDL: 130-159 mg/dLHigh LDL: 160-189 mg/dLVery High LDL: greater than or equal to 190 mg/dL HDL Cholesterol 36(L) >40 mg/dL [facility] Comment:Desirable HDL: great er than 40 mg/dL Note: This HDL assay may give artificially low results in patients with liver disease. Blood Venous blood specimen / Unknown 10/10/2024 9:17 AM EDT 10/10/2024 11:10 AM EDT Sophie Magallon MD LAB BLOOD ORDERABLES Final Result [facility] [address] [place] [phone] * (ABNORMAL) Basic Metabolic Panel (10/10/2024 9:17 AM EDT) Sodium 141 135 - 145 mmol/L [facility] Potassium 3.7 3.3 - 5.1 mmol/L [facility] Chloride 105 96 - 108 mmol/L [facility] Carbon Dioxide 30(H) 22 - 29 mmol/L [facility] Anion Gap 10(L) 12 - 20 [facility] Urea Nitrogen (BUN) 16 9 - 16 mg/dL [facility] Creatinine, Serum 0.94 0.5 - 1.4 mg/dL [facility] Estimated Glomerular Filt Rate >60 [facility] Comment:Chronic Kidney Disea se: Estimated GFR < 60 mL/min/1.81a2Nmexur Kidney Disease: Estimated GFR < 15 mL/min/1.73m2 Glucose 96 60 - 115 mg/dL [facility] Calcium 9.3 8.4 - 10.2 mg/dL [facility] Blood Venous blood specimen / Unknown 10/10/2024 9:17 AM EDT 10/10/2024 11:10 AM EDT Sophie Magallon MD LAB BLOOD ORDERABLES Final Result [facility] [address] [place] [phone] * XR CERVICAL SPINE 3V (09/14/2024 3:27 PM EDT) Anatomical Region Laterality Modality Abdomen Radiographic Lauren ging 09/14/2024 3:27 PM EDT Narrative 09/14/2024 4:34 PM EDT [facility] [address] [place] [address] XRay Report Signed Patient: FRED HYATT MR#: [id number] : 1975 Acct:[id number] Age/Sex: 48 / M ADM Date: 09/14/24 Loc: HO.HHCX Attending Dr: Sophie Magallon MD Ordering Physician: Sophie Magallon MD Date of Service: 09/14/24 Procedure(s): XR cervical spine 3V Accession Number(s): [id number] cc: Sophie Magallon MD EXAMINATION: XR CERVICAL SPINE CLINICAL INFORMATION: Chronic occipital headaches COMPARISON: None available. TECHNIQUE: 3 views of the cervical spine were obtained. FINDINGS: Cervicothoracic junction is obscured by over lapping bony and soft tissues. There are no prevertebral soft tissue or bony abnormalities demonstrated. No compression fractures or subluxations are identified. Alignment is maintained at the atlanto-axial articulation. The disc spaces are preserved. No endplate changes are seen. The prevertebral soft tissues are normal. The foramina are patent. XR/XR cervical spine 3V IMPRESSION: Unremarkable examination. Electronically signed by: Kal King MD 09/14/2024 04:31 PM EDT Dictated By: Kal King MD Signed By: <Electronically signed by Kal King MD in OV> 09/14/24 1631 DD/ 1527 TD/TT: 09/14/24 1600 System Operator: Procedure Note Donotuseinterpreter, Image - 09/14/[address] [address] XRay Report Signed Patient: FRED HYATTMR#: [id number] : 1975Acct:[id number] Age/Sex: 48 / MADM Date: 09/14/24 Loc: HO.HHCX Attending Dr: Sophie Magallon MD Ordering Physician: Sophie Magallon MD Date of Service: 09/14/24 Procedure(s): XR cervical spine 3V Accession Number(s): [id number] cc: Sophie Magallon MD EXAMINATION: XR CERVICAL SPINE CLINICAL INFORMATION: Chronic occipital headaches COMPARISON: None available. TECHNIQUE: 3 views of the cervical spine were obtained. FINDINGS: Cervicothoracic junction is obscured by over lapping bony and soft tissues. There are no prevertebral soft tissue or bony abnormalities demonstrated. No compression fractures or subluxations are identified. Alignment is maintained at the atlanto-axial articulation. The disc spaces are preserved. No endplate changes are seen. The prevertebral soft tissues are normal. The foramina are patent. XR/XR cervical spine 3V IMPRESSION: Unremarkable examination. Electronically signed by: Kal King MD 09/14/2024 04:31 PM EDT Dictated By: Kal King MD Signed By: <Electronically signed by Kal King MD in OV> 09/14/24 1631 DD/ 1527 TD/TT: 09/14/24 1600 System Operator: us Sophie Magallon MD IMG XR PROCEDURES Final Re sult * XR Hip 2 or 3 Views Left (09/14/2024 3:23 PM EDT) Anatomical Region Laterality Modality Lower Extremities, Hip Left Radiograp hic Imaging 09/14/2024 3:23 PM EDT Narrative 09/14/2024 4:33 PM EDT [address] [address] XRay Report Signed Patient: FRED HYATT MR#: [id number] : 1975 Acct:[id number] Age/Sex: 48 / M ADM Date: 09/14/24 Loc: HO.HHCX Attending Dr: Sophie Magallon MD Ordering Physician: Sophie Magallon MD Date of Service: 09/14/24 Procedure(s): XR hip LT min 2V Accession Number(s): [id number] cc: Sophie Magallon MD EXAMINATION: XR HIP, LEFT CLINICAL INFORMATION: Chronic left lateral hip pain COMPARISON: None available. TECHNIQUE: Two views of the left hip. FINDINGS: There is mild axial joint space narrowing. Lateral Center edge angle measured 53 There are no other abnormalities in the hip. degrees. XR/XR hip LT min 2V IMPRESSION: Coxa profunda. Mild axial joint space narrowing. Electronically signed by: Kal King MD 09/14/2024 04:30 PM EDT RP Dictated By: Kal King MD Signed By: <Electronically signed by Kal King MD in OV> 09/14/24 1630 DD/ 1523 TD/TT: 09/14/24 1600 System Operator: Procedure Note Donotuseinterpreter, Image - 09/14/[address] [address] XRay Report Signed Patient: FRED HYATTMR#: [id number] : 1975Acct:[id number] Age/Sex: 48 / MADM Date: 09/14/24 Loc: HO.HHCX Attending Dr: Sophie Magallon MD Ordering Physician: Sophie Magallon MD Date of Service: 09/14/24 Procedure(s): XR hip LT min 2V Accession Number(s): [id number] cc: Sophie Magallon MD EXAMINATION: XR HIP, LEFT CLINICAL INFORMATION: Chronic left lateral hip pain COMPARISON: None available. TECHNIQUE: Two views of the left hip. FINDINGS: There is mild axial joint space narrowing. Lateral Center edge angle measured 53 There are no other abnormalities in the hip. degrees. XR/XR hip LT min 2V IMPRESSION: Coxa profunda. Mild axial joint space narrowing. Electronically signed by: Kal King MD 09/14/2024 04:30 PM EDT RP Dictated By: Kal King MD Signed By: <Electronically signed by Kal King MD in OV> 09/14/24 1630 DD/ 1523 TD/TT: 09/14/24 1600 System Operator: Sophie Magallon MD IMG XR PROCEDURES Final Re sult * HIV-1/2 Antigen and Antibodies, Fourth Generation, with Reflexes (10/12/2023 11:00 AM EDT) [facility] HIV AB/AG Nonreactive Nonreactive [facility] Comment:HIV-1 p24 Ag and/or HIV-1/HIV-2 Ab not detected.A test result that is nonreactive does not exclude thepossibility of exposure to or infection with HIV-1 and/orHIV-2. Nonreactive results in this assay for individualswith prior exposure to HIV-1 and/or HIV-2 may be due toantigen and antibody levels that are below the limit ofdetection of this assay.The Fone[employer]ense HIV Ag/Ab Combo assay result andsupplemental assay results should be interpreted inconjunction with the patient's clinical presentation,history and other laboratory results. If the results areinconsistent with clinical evidence, additional testing issuggested to confirm the result. Blood Venous blood specimen / Unknown 10/12/2023 11:00 AM EDT 10/12/2023 11:35 AM EDT Sophie Magallon MD LAB BLOOD ORDERABLES Final Result [facility] [address] [place] [phone] * Hm Colonoscopy (03/19/2023) Pathologist [facility] Colonoscopy Normal Normal Comment:-colonoscopy on 02/[address] Dagmar Manuel Impression: - The rectum, sigmoid colon, descending colon, transverse colon, ascending colon and cecum are normal.- No specimens collected.Recommendation: - Repeat colonoscopy in 10 years for screening Historical Provider HEALTH MAINTENANCE Final Result * Hepatitis C Antibody Reflex (09/26/2022 9:40 AM EDT) Hepatitis C Antibody Nonreactive Nonreactive [facility] Comment:Antibodies to HCV no t detected; does not exclude early acuteHCV infection. 09/26/2022 9:40 AM EDT 09/26/2022 11:08 AM EDT Sophie Magallon MD LAB BLOOD ORDERABLES Final Result [facility] [address] [place] [phone] from Last 3 Months or Most Recently Relevant to Health Maintenance Insurance [address] [place] [id number] [facility] < 65 JIM GAINES [id number] [facility] Advance Directives Documents on File Type Date Recorded Patient Cotton Expert Expl anation Advance Directives and Living Will 05/11/2023 Health Care Proxy 05/11/23 Care Teams Public Safety Telecommunicator Relationship Specialty Start Date End Date Sophie Magallon MD [address] [place] [address] PCP - General Family Medicine 07/31/22 Favian Adan MD [address] [place] [address] Otolaryngology 03/07/24 Dr. Dagmar Albright [facility] [place], [place] Gastroenterology 03/07/24
--- OUTSIDE RECORDS SUMMARY | 2024-11-11 09:39 | XMS_ITS | Encounter Summary ---
Author Organization [employer] [facility] Address [address] [place] [address] Care Team Providers Care Stitch Cleaner Name Role Phone Sophie Magallon MD Primary Care Provider [phone] Favian Adan MD Unavailable [phone] Reason for Visit * Reason Onset Date Comments New Patient Appt 07/30/2022 Encounter Details Date Type Department Care Team (Late st Contact Info) Description 07/30/2022 Telephone [facility] MEDICINE [address] [place] [address] Sophie Magallon MD [address] [place] [address] New Patient Appt Social History Tobacco Use Types Packs/Day Years [...] on filedocumented in this encounter Care Teams Stitch Cleaner Relationship Specialty Start Date End Date Sophie Magallon MD [address] [place] [address] PCP - General Family Medicine 07/31/22 Favian Adan MD [address] [facility] [place] [address] Otolaryngology 03/07/24 Dr. Dagmar Albright [facility] [place], [place] Gastroenterology 03/07/24 documented as of this encounter
--- OUTSIDE RECORDS SUMMARY | 2024-11-11 09:39 | XMS_ITS | Encounter Summary ---
Author Organization [employer] [facility] Address [address] [place] [address] Care Team Providers Care Shareholder Name Role Phone Sophie Magallon MD Primary Care Provider [phone] Favian Adan MD Unavailable [phone] Reason for Visit * Reason Onset Date Comments Call Back Request 07/29/2023 Encounter Details Date Type Department Care Team ([facility] st Contact Info) Description 07/29/2023 Telephone [facility] MEDICINE [address] [place], [place] [phone] Sophie Magallon MD [address] [place] [address] Call Back Request Social History Tobacco Use Types Packs/Day Years [...] Miscellaneous Notes * Telephone Encounter - Blayne Arnold - 07/29/2023 12:57 PM EDT Tc from pt requesting call back to clarify if pt needs to follow up for yearly blood work. Please contact pt at [phone]. documented in this encounter Plan of Treatment Not on file documented as of this encounter Visit Diagnoses Not on filedocumented in this encounter Care Teams Shareholder Relationship Specialty Start Date End Date Sophie Magallon MD [address] [place] [address] PCP - General Family Medicine 07/31/22 Favian Adan MD [address] [place] [address] Otolaryngology 03/07/24 Dr. Dagmar Albright [facility] [place], [place] Gastroenterology 03/07/24 documented as of this encounter
--- OUTSIDE RECORDS SUMMARY | 2024-11-11 09:39 | XMS_ITS | Encounter Summary ---
Author Organization [employer] [facility] Address [address] [place] [address] Care Team Providers Care Relocation Manager Name Role Phone Sophie Magallon MD Primary Care Provider [phone] Favian Adan MD Unavailable [phone] Reason for Visit * Reason Onset Date Comments Reschedule 03/25/2023 Encounter Details Date Type Department Care Team ([facility] st Contact Info) Description 03/25/2023 Telephone [facility] MEDICINE [address] [place], [place] [phone] Sophie Magallon MD [address] [place] [address] Reschedule Social History Tobacco Use Types Packs/Day Years Used Date Smoking Tobacco: Never Smokeless Tobacco: Never Alcohol Use Standard Drinks/Week Comments Yes 0 (1 standard drink = 0.6 oz pur e alcohol) Housing Stability Answer Date Recorded What is your housing situation today? I have emmanueljerry carbajal 12/12/[address] you [...] from getting things needed for daily living? Yes, it has kept me from medical appointments or getting medications. 12/03/2022 Utilities Answer Date Recorded In the past [...] encounter Miscellaneous Notes * Telephone Encounter - Luann Carmona - 03/25/2023 2:35 PM EST Tc from pt requesting r/s 03/25/23 appt, service writer advisor attempted to schedule no availability. Pt prefer Thursday or Thursday. documented in this encounter Plan of Treatment Not on file documented as of this encounter Visit Diagnoses Not on filedocumented in this encounter Care Teams Relocation Manager Relationship Specialty Start Date End Date Sophie Magallon MD [address] [place] [address] PCP - General Family Medicine 07/31/22 Favian Adan MD [address] [place] [address] Otolaryngology 03/07/24 Dr. Dagmar Albright [facility] [place], [place] Gastroenterology 03/07/24 documented as of this encounter
--- OUTSIDE RECORDS SUMMARY | 2024-11-11 09:39 | XMS_ITS | Encounter Summary ---
Author Organization [employer] Address [address] [place] [address] Care Team Providers Care Arborist Name Role Phone Sophie Magallon MD Primary Care Provider [phone] Favian Adan MD Unavailable [phone] Encounter Details Date Type Department Care Team (Late st Contact Info) Description 01/04/[address] [facility] MEDICINE [address] [place], [place] [phone] Sophie Magallon MD [address] [place] [address] Social History Tobacco Use Types Packs/Day Years [...] documented as of this encounter Care Teams Arborist Relationship Specialty Start Date End Date Sophie Magallon MD [address] [place] [address] PCP - General Family Medicine 07/31/22 Favian Adan MD [address] [place] [address] Otolaryngology 03/07/24 Dr. Dagmar Albright [facility] [place], [place] Gastroenterology 03/07/24 documented as of this encounter
--- OUTSIDE RECORDS SUMMARY | 2024-11-11 09:39 | XMS_ITS | Encounter Summary ---
Author Organization [facility] Address [address] [place] [address] Care Team Providers Care Air Lift Operator Name Role Phone Sophie Magallon MD Primary Care Provider [phone] Favian Adan MD Unavailable [phone] Reason for Visit * Reason Onset Date Comments Med Refill 06/18/2023 Encounter Details Date Type Department Care Team ([facility] st Contact Info) Description 06/18/2023 Telephone [facility] MEDICINE [address] [place], [place] [phone] Sophie Magallon MD [address] [place] [address] Med Refill Social History Tobacco Use Types Packs/Day Years [...] encounter Miscellaneous Notes * Telephone Encounter - Elizabet Jacobs LPN - 06/18/2023 1:10 PM EDT Please review medication was discontinued. * Telephone Encounter - Blayne Barrett - 06/18/2023 12:46 PM EDT TC from pt requesting medication refill. Medications needing refill: azelastine (Astelin) 0.1 % nasal spray To be sent to: [facility] #[id number] documented in this encounter Plan of Treatment Not on file documented as of this encounter Visit Diagnoses Not on filedocumented in this encounter Care Teams Air Lift Operator Relationship Specialty Start Date End Date Sophie Magallon MD [address] [place] [address] PCP - General Family Medicine 07/31/22 Favian Adan MD [address] [place] [address] Otolaryngology 03/07/24 Dr. Dagmar [facility] [place] 03/07/24 documented as of this encounter
--- OUTSIDE RECORDS SUMMARY | 2024-11-11 09:39 | XMS_ITS | Encounter Summary ---
Author Organization [employer] [facility] Address [address] [place] [address] Care Team Providers Care Test Desk Trouble Locator Name Role Phone Naun, Spohie GAY Primary Care Provider [phone] Favian Adan MD Unavailable [phone] Reason for Visit * Reason Onset Date Comments reschedule appt 06/06/2024 american sign language interpreter needed 06/06/2024 Encounter Details Date Type Department Care Team (Late st Contact Info) Description 06/06/2024 Telephone [facility]ULT DENTAL [address] [place] [address] Juan Ruby DDS [address] [place] [address] reschedule appt ; american sign language interpreter needed Social History Tobacco Use Types Packs/Day Years [...] encounter Miscellaneous Notes * Telephone Encounter - Allan Geller - 06/09/2024 4:13 PM EDT Rescheduled an appointment due to provider. Patient needs american sign language interpreter. ER. * Telephone Encounter - Alpa Benjamin - 06/06/2024 3:09 PM EDT Betsy had appt on 06/07 that has to be rescheduled due to provider coming in late that day. He was offered 06/10 at 9 however he is unable to take that date. He needs something after 2pm. Informed patient that front end driver will be informed He also asked that american sign language interpreter for tomorrows appt be cancelled. documented in this encounter Plan of Treatment Not on file documented as of this encounter Visit Diagnoses Not on filedocumented in this encounter Additional Health Concerns Assessment Noted Time PHQ-9 Depression Total Score: 1 10/21/19 24 11:21 AM EDT documented as of this encounter Care Teams Test Desk Trouble Locator Relationship Specialty Start Date End Date Sophie Magallon MD [address] [place] [address] PCP - General Family Medicine 07/31/22 Favian Adan MD [address] [facility] [place] [address] Otolaryngology 03/07/24 Dr. Dagmar Albright [facility] [place], [place] Gastroenterology 03/07/24 documented as of this encounter
== END 2024-11-11 09:56 | disposition home or self-care (01) ==
LOC: HO.HGI 08:54
PROVIDERS: PCP Family Medicine; Visit Provider Nurse Practitioner Family
DX: R13.10 Dysphagia, unspecified (principal); R09.82 Postnasal drip
CPT/HCPCS: 99205

== ENCOUNTER → 2024-11-11 08:54 | Outpatient (BNVA) | payer OTHER, SELFPAY | PROVIDERS: PCP Family Medicine; Visit Provider Nurse Practitioner Family | DX: R13.10 Dysphagia, unspecified (principal); R09.82 Postnasal drip | CPT/HCPCS: 99202 ==

== ENCOUNTER 2025-02-13 07:52 | Outpatient (REF) | payer OTHER, SELFPAY ==
--- NOTE | ~2025-02-13 | FL_ITS ---
EXAMINATION: XR BARIUM SWALLOW CLINICAL INFORMATION: Dysphagia to solids and liquids COMPARISON: None available. TECHNIQUE: Routine barium swallow was performed with thick barium, saltine crackers and thin barium in upright view. FINDINGS: On oral administration of thick barium there is normal propagation bolus from the oral cavity through the pharynx, esophagus into stomach without obstruction, narrowing or stricture. No laryngeal penetration or aspiration seen. On oral administration of barium coated saltine crackers there is normal oral mastication and propagation of solid food from the oral cavity through the pharynx into esophagus. End hole above solid food was seen in the mid esophagus which cleared with subsequent changes bolus with thin barium. FLUOROSCOPY TIME: 2 minutes 32 seconds. DOSE AREA PRODUCT: 1957 uGy-m2 (microgray-meter squared) FL/FL barium swallow IMPRESSION: Unremarkable barium swallow exam.. Electronically signed by: Robin Swanson MD 02/13/2025 12:26 PM [facility]
--- OUTSIDE RECORDS SUMMARY | 2025-02-13 07:54 | XMS_ITS | Encounter Summary ---
Author Organization [employer] [facility] Address [address] 7t [place] [address] Care Team Providers Care Hospice Executive Director Name Role Phone Sophie Magallon MD Primary Care Provider [phone]- [phone] Favian Adan MD Unavailable [phone] Reason for Visit * Reason Onset Date Comments Returning Call 06/23/2023 Encounter Details Date Type Department Care Team ([facility] st Contact Info) Description 06/23/2023 Telephone [facility] [address] [place], [place] [phone] Sophie Magallon MD [address] [place], [place] [phone] Returning Call Social History Tobacco Use Types [...] the past 12 months, has t he [employer], gas, oil or water company threatened to [...] Tc from pt stating received a call, designer writer didn't see anything documented. Pt wanted to leave a preferred contact number at [phone]. documented in this encounter Plan of Treatment Upcoming Encounters Date Type Department Care Team (Late st Contact Info) Description 03/21/2025 2:15 PM EST Office Visit [facility] [address] [place] [address] Calli, Odilia [address] [place] [address] documented as of this encounter Visit Diagnoses Not on filedocumented in this encounter Care Teams Hospice Executive Director Relationship Specialty Start Date End Date Sophie Magallon MD [address] [place] [address] PCP - General Family Medicine 07/31/22 Favian Adan MD [address] [place] [address] Otolaryngology 03/07/24 Dr. Dagmar Albright [facility] 03/07/24 documented as of this encounter
--- OUTSIDE RECORDS SUMMARY | 2025-02-13 07:54 | XMS_ITS | Encounter Summary ---
Author Organization [facility] Address [address] 7t [place] [address] Care Team Providers Care Agricultural Equipment Sales Manager Name Role Phone Sophie Magallon MD Primary Care Provider [phone]- [phone] Favian Adan MD Unavailable [phone] Reason for Visit * Reason Onset Date Comments Reschedule 03/25/2023 Encounter Details Date Type Department Care Team ([facility] st Contact Info) Description 03/25/2023 Telephone [facility] [address] [place], [place] [phone] Sophie Magallon MD [address] [place] [address] Reschedule Social History Tobacco Use Types Packs/Day [...] Tc from pt requesting r/s 03/25/23 appt, senior technical writer attempted to schedule no availability. Pt prefer Thursday or Thursday. documented in this encounter Plan of Treatment Upcoming Encounters Date Type Department Care Team (Late st Contact Info) Description 03/21/2025 2:15 PM EST Office Visit [facility] [address] [place] [address] Calli, Odilia [address] [place] [address] documented as of this encounter Visit Diagnoses Not on filedocumented in this encounter Care Teams Agricultural Equipment Sales Manager Relationship Specialty Start Date End Date Sophie Magallon MD [address] [place] [address] PCP - General Family Medicine 07/31/22 Favian Adan MD [address] [place] [address] Otolaryngology 03/07/24 Dr. Dagmar Albright [facility] [place] [facility] 03/07/24 documented as of this encounter
--- OUTSIDE RECORDS SUMMARY | 2025-02-13 07:54 | XMS_ITS | Encounter Summary ---
Author Organization [facility] [facility] Address [address] 7t [place] [address] Care Team Providers Care Oil And Gas Recruiter Name Role Phone Sophie Magallon MD Primary Care Provider [phone]- [phone] Favian Adan MD Unavailable [phone] Reason for Visit * Reason Onset Date Comments Call Back Request 07/29/2023 Encounter Details Date Type Department Care Team ([facility] st Contact Info) Description 07/29/2023 Telephone [facility] 230 [place], [place] [phone] Sophie Magallon MD [address] [place] [address] Call Back Request Social History Tobacco Use [...] yearly blood work. Please contact pt at [phone]. documented in this encounter Plan of Treatment Upcoming Encounters Date Type Department Care Team (Late st Contact Info) Description 03/21/2025 2:15 PM EST Office Visit [facility] ADULT DENT[facility] [address] [place] [address] Calli, Odilia [address] [place] [address] documented as of this encounter Visit Diagnoses Not on filedocumented in this encounter Care Teams Oil And Gas Recruiter Relationship Specialty Start Date End Date Sophie Magallon MD [address] [place] [address] PCP - General Family Medicine 07/31/22 Favian Adan MD [address] [place] [address] Otolaryngology 03/07/24 Dr. Dagmar Albright [facility] 03/07/24 documented as of this encounter
--- OUTSIDE RECORDS SUMMARY | 2025-02-13 07:54 | XMS_ITS | Encounter Summary ---
Author Organization [employer] [facility] Address [address] 7t [place] [address] Care Team Providers Care Oracle Solutions Architect Name Role Phone Sophie Magallon MD Primary Care Provider [phone] Favian Adan MD Unavailable [phone] Reason for Visit * Reason Onset Date Comments Med Refill 06/18/2023 Encounter Details Date Type Department Care Team ([facility] st Contact Info) Description 06/18/2023 Telephone [facility] [address] [place], [place] [phone] Sophie Magallon MD [address] [place] [address] Med Refill Social History Tobacco Use Types [...] % nasal spray To be sent to: [employer] [email or web address] #[id number] documented in this encounter Plan of Treatment Upcoming Encounters Date Type Department Care Team (Late st Contact Info) Description 03/21/2025 2:15 PM EST Office Visit [facility] ADULT DENTAL [address] [place] [address] Calli, Odilia [address] [place] [address] documented as of this encounter Visit Diagnoses Not on filedocumented in this encounter Care Teams Oracle Solutions Architect Relationship Specialty Start Date End Date Sophie Magallon MD [address] [place] [address] PCP - General Family Medicine 07/31/22 Favian Adan MD [address] [place] [address] Otolaryngology 03/07/24 Dr. Dagmar Albright [facility] [place] [facility] 03/07/24 documented as of this encounter
--- OUTSIDE RECORDS SUMMARY | 2025-02-13 07:54 | XMS_ITS | Clinical Summary ---
Author Organization [employer] Address [address] 7t [place] [address] Care Team Providers Care Key Entry Operator Name Role Phone Sophie Magallon MD Primary Care Provider [phone]- [phone] Favian Adan MD Unavailable [phone] Allergies No known active allergies Medications senna [...] Active Problems Problem Noted Date Diagnosed Date Lung nodule 01/11/2025 Overview (01/11/2025): Pt had 4mm non calcified pulmonary nodule incidental on CT 2022 in [place]. He has radiology report. He is concerned the nodule has grown. Denies weight loss, SOB, tobacco hx. It is causing significant psychological distress. Will recheck CT scan. Assessment & Plan (01/12/2025 12:53 PM EST): Orders: CT Chest w/o Contrast; Future Left hip pain 09/15/2024 Overview (09/15/2024): Left [...] mentioned technical difficulties expressed by both the slubber frame changer and patient. Patient agreed to have another appt scheduled with any provider as long as there was a live pleat taper. The CT scan and ENT valuation from 2022 in [place] will be scanned separately. Patient is aware [...] Constipation 10/29/2022 Overview (12/03/2022): Trial of patricio -Yordy THOMAS Dr. on 11/26/2022 Assessment & Plan (12/03/2022 10:32 AM EDT): Trial of patricio -Yordy THOMAS Dr. on 11/26/2022 Deafness 09/22/2022 Overview (03/31/2024): -Audiology referral placed 09/22/2022. -Patient needs events specialist for all visits. Please make note of this in any referrals. -Please check with patient whether a live/in person slubber frame changer will be needed or a virtual slubber frame changer will be ok. Please note minimum 2 weeks notice to [place] [employer] [place] [employer] needed before live slubber frame changer. Assessment & Plan (09/15/2024 10:06 AM EDT): Orders: Referral to Physical Therapy; Future Assessment & Plan (03/31/2024 9:48 AM EST): -Audiology referral placed 09/22/2022. -Patient needs events specialist for all visits. Please make note of this in any referrals. -Please check with patient whether a live/in person slubber frame changer will be needed or a virtual slubber frame changer will be ok. Please note minimum 2 weeks notice to [place] [employer] [place] needed before live slubber frame changer. Assessment & Plan (10/21/2023 10:41 AM EDT): -Audiology referral placed 09/22/2022. -Patient needs events specialist for all visits. Please make note of this in any referrals. -Please check with patient whether a live/in person slubber frame changer will be needed or a virtual slubber frame changer will be ok. Please note minimum 2 weeks notice to [place] [employer] [place] [employer] needed before live slubber frame changer. Assessment & Plan (05/11/2023 11:37 AM EDT): -Audiology referral placed 09/22/2022. -Patient needs events specialist for all visits. Please make note of this in any referrals. Assessment & Plan (09/22/2022 11:44 AM EDT): Audiology referral done 09/22/2022. Other specified health status 09/22/2022 Overview (09/14/2024): -next comprehensive annual evaluation due after 09/14/25 -eye care -referral to [facility] placed 09/22/22 -Advised to seek dental care 08/2022 -health care proxy filed on 05/11/2023 Assessment & Plan (09/15/2024 10:06 AM EDT): -next comprehensive annual evaluation due after 09/14/25 -eye care -referral to [facility] placed 09/22/22 -Advised to seek dental care 08/2022 -health care proxy filed on 05/11/2023 Assessment & Plan (05/11/2023 11:39 AM EDT): -next physical exam due after 12/04/2023 -eye care -referral to [facility] placed 09/22/22 -Advised to seek dental care 08/2022 -health care proxy filed on 05/11/2023 Assessment & Plan (12/03/2022 10:41 AM EDT): -next physical exam due after 12/04/2023 -eye care -referral to [facility] placed 09/22/22 -Advised to seek dental [...] not findings that warrant surgery -Patient saw fountain dispenser, Dr. Adan on 12/25/2022 he prescribed Ipratropium [...] to offer surgery to correct -referred to [facility] per patient's request, however discussed if insurance sharpe snot cover it is patient's responsibility to call and find a different specialist that is covered per pts request 03/31/24 -apt with Dr. Carl Henning 04/28/24 recommed latex fashions designer for EGD to assess thickened saliva lower part of the throat. -Saw [facility], Herbert Canchola 05/20/24, found right nostril [...] back to Dr. Rao Assessment & Plan (01/12/2025 12:53 PM EST): Patients greatest concern is chronic symptom of feeling right sidednasal obstruction. Pt is adamant that he wants surgery despite continued discussion that there are not findings that warrant surgery. -Patient saw fountain dispenser, Dr. Adan on 12/25/2022 he prescribed Ipratropium [...] correct -referred to [facility] per patient's request and saw Dr. Carl Henning 04/28/24 recommed latex fashions designer for EGD to assess thickened saliva lower [...] is having. Recommend referral back to Dr. Rao. -01/11/25 scheduled televisit requesting another ENT referral. I explained he has seen multiple ENTs who do not recommend surgery. Advised he call to follow up with them for ongoing discomfort. Tried to manage expectations around symptoms an that their might not be a treatment that will alleviate the sensation in his right nostril that has been present for many years. Continue to manage expectations and empower pt to follow up with specialists for ongoing concerns. Assessment & Plan (09/15/2024 10:06 AM EDT): Patients greatest concern is chronic symptom of feeling nasal obstruction. Pt is adamant that he wants surgery despite continued discussion that there are not findings that warrant surgery -Patient saw fountain dispenser, Dr. Adan on 12/25/2022 he prescribed Ipratropium [...] -apt with Dr. Carl Henning 04/28/24 recommed latex fashions designer for EGD to assess thickened saliva lower [...] not findings that warrant surgery -Patient saw fountain dispenser, Dr. Adan on 12/25/2022 he prescribed Ipratropium [...] lesions. No acute process noted. -referred to [facility] per patient's request, however discussed if insurance sharpe snot cover it is patient's responsibility to call and find a different specialist that is covered. 03/31/24 Assessment & Plan (10/21/2023 10:42 AM EDT): Patients greatest concern is chronic symptom of feeling nasal obstruction. Pt is adamant that he wants surgery despite continued discussion that there are not findings that warrant surgery -Patient saw fountain dispenser, Dr. Adan on 12/25/2022 he prescribed Ipratropium [...] appt on 01/02/2023 Mild acid reflux 09/22/2022 Overview (11/16/2024): -seen by GI 11/14/24 Multiple-year history with both solids/liquids, associated with regurgitation and heartburn, partial but incomplete response to PPIs, episodic pattern, negative colonoscopy (2023 per pt, outside facility), and no weight loss or alarming features. Additional Testing: -unremakable CMP 10/10/24 ( normal kidney functions, LFTs) -Upper GI series w/ Barium swallow study (esophagram) ordered to evaluate swallowing mechanism, rule out structural or motility disorder. -Consider repeat upper endoscopy (EGD) pending results and access to prior [place] [facility] records. Medication Management: -Increase omeprazole to 40 mg daily (single AM dose); reinforce adherence and appropriate administration (30 min pre-meal). -Fiber supplement (Citrucel) recommended for stool regularity, refill requested. Lifestyle Recommendations: -Maintain current alcohol abstinence. -Continue dietary modifications for stool regularity. -Consider [id number] antihistamines or nasal saline as empiric measures for post-nasal drip, though prior response limited. Follow-Up: Reassess in 3 months, or sooner if barium results concerning or symptoms worsen. Resolved Problems Problem Noted Date Diagnosed Date Resolved Date Exercise counseling 03/30/2024 09/15/19 25 Assessment & Plan (03/31/2024 9:37 AM EST): Exercise Recommendations: At least 150 minutes of moderate-intensity physical activity per week, or an equivalent combination of moderate- and vigorous-intensity activity Dietary counseling 03/30/2024 5 Assessment & Plan (03/31/2024 9:37 AM EST): [...] Encounters Date Type Department Care Team Description 02/09/2025 Telephone [facility] [address] [place] [phone] Sophie Magallon MD Referral; Prior Auth Procedure 01/11/2025 4:00 PM EST Telemedicine [facility] [address] [place] [address] Sophie Magallon MD Nasal obstruction (Primary Dx); Lung nodule 01/11/2025 Travel 01/10/2025 Telephone [facility] [address] [place] [address] Sophie Magallon MD 01/10/2025 Telephone [facility] [address] [place] [address] Sophie Magallon MD chart prep 12/14/2024 2:30 PM EDT Immunization [facility] [address] [place] [address] Loretta Boyd RN Encounter for immunization 12/14/2024 Travel from Last 3 Months Immunizations Immunization Administration Dates Next Due Hep B, adult 06/09/2023,01/05/2023,12/03/2022 Influenza injectable quadriv alent preservative free 12/03/2022 Influenza, IIV3, injectable 01/28/2005,0 03/19/2004,01/05/2003,2002 Influenza, seasonal, injecta ble, preservative free 12/14/2024,12/18/2023 MMR 11/10/2002,01/19/1979 TD (adult), 2 Lf tetanus [...] housing situation today? I have emmanuel carbajal 09/14/[address] you li [...] 05/13/2024 11:14 AM EDT Plan of Treatment Upcoming Encounters Date Type Department Care Team (Late st Contact Info) Description 03/21/2025 2:15 PM EST Office Visit [facility] [address] [place] [address] Calli, Odilia [address] [place] [address] Health Maintenance Due Date Last Done Comments CT Colonography 1977 FIT DNA/Cologuard 1977 FIT 1977 FOBT 1977 Sigmoidoscopy 1977 Dental Oral Exam 09/09/2024 03/11/2024, 03/03/2023 COVID-19 Vaccine ( season) 2024 Dental X-Ray: Bitewings 03/12/2025 03/11/2024, 03/03 Dental [...] 01/05/2023, 12/03/2022 HIV Screening Completed 10/12/2023, 09/26/2022 Influenza Vaccine Completed 12/14/2024, , 12/03/2022, Additional history exists HIB Vaccines Aged Out No longer eligi [...] Procedure Name Priority Date/Time Associated Diagnosis Comments LIPID PANEL, STANDARD Routine 10/10/2024 9:17 AM EDT Dyslipidemia PROPHYLAXIS - ADULT Routine 09/16/2024 8 :00 AM EDT Localized gingival recession Dental plaque BITEWINGS - 4 RADIOGRAPHIC IMAGES Routine 03/11/2024 [...] Recently Relevant to Health Maintenance Results * (ABNORMAL) Lipid Panel, Standard (10/10/2024 9:17 AM EDT) Triglycerides 120 <150 mg/dL [facility] Comment:Desirable Triglyceri de: less than 150 mg/dLBorderline High Triglyceride 150-199 mg/dLHigh Triglyceride: 200-499 mg/dLVery High Triglyceride: greater than or equal to 5OO mg/dL Cholesterol 142 <200 mg/dL [facility] Comment:Desirable Cholestero l: less than 200 mg/dLBorderline High Cholesterol: 200-239 mg/dLHigh Cholesterol: greater than 239 mg/dL LDL Cholesterol Calculated 82 <100 mg/dL [facility] Comment:Desirable LDL: less than 100 mg/dLNear Optimal/Above Optimal LDL: 110- 129 mg/dLBorderline High LDL: 130-159 mg/dLHigh LDL: 160-189 mg/dLVery High LDL: greater than or equal to 190 mg/dL HDL Cholesterol 36(L) >40 mg/dL [facility] Comment:Desirable HDL: great er than 40 mg/dL Note: This HDL assay may give artificially low results in patients with liver disease. Blood Venous blood specimen / Unknown 10/10/2024 9:17 AM EDT 10/10/2024 11:10 AM EDT Sophie Magallon MD LAB BLOOD ORDERABLES Final Result Performing Organization Address City/[facility]/ZIP Co de Phone Number [facility] [address] [place] [address] [phone] * HIV-1/2 Antigen and Antibodies, Fourth Generation, with Reflexes (10/12/2023 11:00 AM EDT) HIV AB/AG Nonreactive Nonreactive [facility] Comment:HIV-1 p24 Ag and/or HIV-1/HIV-2 Ab not detected.A test result that is nonreactive does not exclude thepossibility of exposure to or infection with HIV-1 and/orHIV-2. Nonreactive results in this assay for individualswith prior exposure to HIV-1 and/or HIV-2 may be due toantigen and antibody levels that are below the limit ofdetection of this assay.The turntable.[id number] HIV Ag/Ab Combo assay result andsupplemental assay results should be interpreted inconjunction with the patient's clinical presentation,history and other laboratory results. If the results areinconsistent with clinical evidence, additional testing issuggested to confirm the result. Blood Venous blood specimen / Unknown 10/12/2023 11:00 AM EDT 10/12/2023 11:35 AM EDT Sophie Magallon MD LAB BLOOD ORDERABLES Final Result Performing Organization Address City/[facility]/ZIP Co de Phone Number [facility] [address] [place] [address] [phone] * Hm Colonoscopy (03/19/2023) Colonoscopy Normal Normal Comment:-colonoscopy on 02/[address] Dagmar Manuel Impression: - The rectum, sigmoid colon, descending colon, transverse colon, ascending colon and cecum are normal.- No specimens collected.Recommendation: - Repeat colonoscopy in 10 years for screening Alicia Provider HEALTH MAINTENANCE Final Result * Hepatitis C Antibody Reflex (09/26/2022 9:40 AM EDT) Hepatitis C Antibody Nonreactive Nonreactive [facility] Comment:Antibodies to HCV no t detected; does not exclude early acuteHCV infection. 09/26/2022 9:40 AM EDT 09/26/2022 11:08 AM EDT Sophie Magallon MD LAB BLOOD ORDERABLES Final Result Performing Organization Address City/State/[facility] Co de Phone Number [facility] [address] [place] [phone] from Last 3 Months or Most Recently Relevant to Health Maintenance Insurance [facility] < 65 [place]INES [id number] D[facility]AL [facility] Advance Directives Documents on File Type Date Recorded Patient Operator Be[employer] Systems Expl anation Advance Directives and Living Will 05/11/2023 Health Care Proxy 05/11/23 Care Teams Key Entry Operator Relationship Specialty Start Date End Date Sophie Magallon MD [address] [place] [address] PCP - General Family Medicine 07/31/22 Favian Adan MD [address] [place] [address] Otolaryngology 03/07/24 Dr. Dagmar Albright Gasteroenterology [place], [place] Gastroenterology 03/07/24
--- OUTSIDE RECORDS SUMMARY | 2025-02-13 07:54 | XMS_ITS | Encounter Summary ---
Author Organization [employer] Address [address]t [place] [address] Care Team Providers Care Skate Maker Name Role Phone Sophie Magallon MD Primary Care Provider [phone] Favian Adan MD Unavailable [phone] Encounter Details Date Type Department Care Team (Late st Contact Info) Description 01/04/2024 Telephone [facility] [address] [place], [place] [phone] Sophie Magallon MD [address] [place] [address] Social History Tobacco Use Types Packs/Day Years [...] Description 03/21/2025 2:15 PM EST Office Visit [facility]ULT DENT[facility] [address] [place] [address] Calli, Odilia [address] [place] [address] documented as of this encounter Visit Diagnoses Not on filedocumented in this encounter Additional Health Concerns Assessment Noted Time PHQ-9 Depression Total Score: 1 10/21/19 24 11:21 AM EDT documented as of this encounter Care Teams Skate Maker Relationship Specialty Start Date End Date Sophie Magallon MD [address] [place] [address] PCP - General Family Medicine 07/31/22 Favian Adan MD [address] [place] [address] Otolaryngology 03/07/24 Dr. Dagmar Albright Gasteroenterology [place], [place] Gastroenterology 03/07/24 documented as of this encounter
--- OUTSIDE RECORDS SUMMARY | 2025-02-13 07:54 | XMS_ITS | Encounter Summary ---
Author Organization [facility] Address [address]t [place] [address] Care Team Providers Care Plasterer Stucco Name Role Phone Sophie Magallon MD Primary Care Provider [phone] Favian Adan MD Unavailable [phone] Encounter Details Date Type Department Care Team (Late st Contact Info) Description 10/22/2022 Orders Only [facility] [address] [place], [place] [phone] Sophie Magallon MD [address] [place] [address] Abdominal pain, unspecified abdominal location (Primary Dx); [...] as of this encounter Plan of Treatment Upcoming Encounters Date Type Department Care Team (Late st Contact Info) Description 03/21/2025 2:15 PM EST Office Visit [facility]ULT [facility] [address] [place] [address] Odilia Mccurdy [address] [place] [address] documented as of this encounter Visit Diagnoses Diagnosis Abdominal pain, unspecified abdominal location- Primary Preventative health care Routine general medical examination at a health care facility Dyslipidemia Other and unspecified hyperlipidemia Constipation, unspecified constipation type Colon cancer screening Special screening for malignant neoplasms, colon documented in this encounter Care Teams Plasterer Stucco Relationship Specialty Start Date End Date Sophie Magallon MD [address] [place] [address] PCP - General Family Medicine 07/31/22 Favian Adan MD [address] [place] [address] Otolaryngology 03/07/24 Dr. Dagmar Albright Gasteroenterology [place], [place] Gastroenterology 03/07/24 documented as of this encounter
--- OUTSIDE RECORDS SUMMARY | 2025-02-13 07:54 | XMS_ITS | Encounter Summary ---
Author Organization [employer] [facility] Address [address] [place] [address] 7t [place] [address] Care Team Providers Care Grain Farmer Name Role Phone Sophie aMgallon MD Primary Care Provider [phone] Favian Adan MD Unavailable [phone] Encounter Details Date Type Department Care Team (Late st Contact Info) Description 09/15/2022 Abstract [facility] [address] [place] [address] Sophie Magallon MD [address] [place] [address] Social History Tobacco Use Types Packs/Day Years [...] Description 03/21/2025 2:15 PM EST Office Visit [facility] [address] [place] [address] Odilia Mccurdy [address] [place] [address] documented as of this encounter Visit Diagnoses Not on filedocumented in this encounter Care Teams Grain Farmer Relationship Specialty Start Date End Date Sophie Magallon MD [address] [place] [address] PCP - General Family Medicine 07/31/22 Favian Adan MD 100 [facility] [place] [address] Otolaryngology 03/07/24 Dr. Dagmar Albright Gasteroenterology [place], [place] Gastroenterology 03/07/24 documented as of this encounter
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
--- OUTSIDE RECORDS SUMMARY | 2025-02-13 07:54 | XMS_ITS | Encounter Summary ---
Author Organization [employer] [facility] Address [address] [place] [address] 7 [place] [address] Care Team Providers Care Lens Blank Gauger Name Role Phone Sophie Magallon MD Primary Care Provider [phone] Favian Adan MD Unavailable [phone] Reason for Visit * Reason Onset Date Comments New Patient Appt 07/30/2022 Encounter Details Date Type Department Care Team (Late st Contact Info) Description 07/30/[address] [facility] [address] [place] [address] Sophie Magallon MD [address] [place] [address] New Patient Appt Social History Tobacco Use [...] Description 03/21/2025 2:15 PM EST Office Visit [facility] [address] [place] [address] Odilia Mccurdy [address] [place] [address] documented as of this encounter Visit Diagnoses Not on filedocumented in this encounter Care Teams Lens Blank Gauger Relationship Specialty Start Date End Date Sophie Magallon MD [address] [place] [address] PCP - General Family Medicine 07/31/22 Favian Adan MD [address] [facility] [place] [address] Otolaryngology 03/07/24 Dr. Damgar Albright Gasteroenterology [place], [place] Gastroenterology 03/07/24 documented as of this encounter
--- OUTSIDE RECORDS SUMMARY | 2025-02-13 07:54 | XMS_ITS | Encounter Summary ---
Author Organization [employer] Address [address] [facility] 7t [place] [address] Care Team Providers Care Welder Plasma Arc Name Role Phone Sophie Magallon MD Primary Care Provider [phone] Favian Adan MD Unavailable [phone] Reason for Visit * Reason Onset Date Comments Referral 02/09/2025 Prior Auth Procedure 02/09/2025 Encounter Details Date Type Department Care Team (Late st Contact Info) Description 02/09/2025 Telephone [facility] [address] [place], [place] [phone] Sophie Magallon MD [address] [place] [address] Referral; Prior Auth Procedure Social History Tobacco Use Types Packs/Day Years [...] encounter Miscellaneous Notes * Telephone Encounter - Denise Laguerre - 02/09/2025 11:54 AM EST Patient walked in requesting referral for ENT Patient said he saw the ENT [place] and they advised Patient about a ENT specialist in [place]. Per Patient he called Dr. Ingram at [address] [place] [address] Dr [address] , [place] [address] and they advised for his insurance [employer] they would possibly need a PA from PCP as well as referral. documented in this encounter Plan of Treatment Upcoming Encounters Date Type Department Care Team (Late st Contact Info) Description 03/21/2025 2:15 PM EST Office Visit [facility] [address] [place] [address] Calli Odilia [address] [place] [address] documented as of this encounter Visit Diagnoses Not on filedocumented in this encounter Additional Health Concerns Assessment Noted Time PHQ-9 Depression Total Score: 1 10/21/19 24 11:21 AM EDT documented as of this encounter Care Teams Welder Plasma Arc Relationship Specialty Start Date End Date Sophie Magallon MD [address] [place] [address] PCP - General Family Medicine 07/31/22 Favian Adan MD [address] [facility] [place] [address] Otolaryngology 03/07/24 Dr. Dagmar Albright Gasteroenterology [place], [place] Gastroenterology 03/07/24 documented as of this encounter
--- OUTSIDE RECORDS SUMMARY | 2025-02-13 07:54 | XMS_ITS | Clinical Summary ---
Author Organization [facility] Address [address] [address] Phone Care Team Providers Care Radiation Therapy Technician Name Role Phone Sophie Magallon MD Primary [...] VACCINE (#1) 2024 COVID-19 VACCINE (1 - 2024-2 6 season) 2024 LIPID PANEL 10/11/2028 10/12/2023 Adult [...] MD, MPH - 03/19/2023 6:56 AM EST [facility] Patient Name: Paulo Finley Attending MD:: ADAMA WADDELL MD, Procedure Date: 03/19/2023 6:56 AM Date of : 1975 Age: 47 Admit Type: Outpatient Gender: Male Room: [place] [address] Referring MD: Sophie Magallon MD Exam Type: [...] 6:56 AM Procedure Code(s): --- Professional --- 40449, Colonoscopy, flexible; diagnostic, including collection of specimen(s) by brushing or washing, when performed (separateprocedure) --- Technical --- 37786, Colonoscopy, flexible; diagnostic, including collection of specimen(s) by brushing or washing, when performed (separateprocedure) Diagnosis Code(s): --- Professional --- Z12.11, Encounter for screening for malignantneoplasm of colon K59.00, Constipation, unspecified --- Technical --- Z12.11, Encounter for screening for malignantneoplasm of colon K59.00, Constipation, unspecified CPT copyright 2021 [employer]. All rights reserved. The codes documented in this report are preliminary and upon hand inserter operator reviewmay be revised to meet current compliance requirements. Procedure Date: 03/19/2023 6:56:49 AM 30 [place] [address] Sophie Magallon MD GI PROCEDURE ORDERA BLES Edited Result - Final from Last 3 Months or Most Recently Relevant to Health Maintenance [place] [address] MEDICARE REPLACEMENT [address] [place] [id number] [place] [address] MEDICARE REPL[address]EMENT [address] [place], [place] [id number] [place] [address] [place] [address] [place] [address] CARE MEDICARE REPLACEMENT [facility] CARE MEDICARE REPLACEMENT [facility] CARE MEDICARE REPLACEMENT Care Teams Radiation Therapy Technician Relationship Specialty Start Date End Date Naun, Sophie Jiménez MD [address] [place] [address] PCP - General Family Medicine 11/26/22 Additional Source Comments The information contained in this document represents components of the legal health record. It is not the complete legal health record.[facility]
--- OUTSIDE RECORDS SUMMARY | 2025-02-13 07:54 | XMS_ITS | Encounter Summary ---
Author Organization [employer] [facility] Address [address] [facility] [address] 7t [place] [address] Care Team Providers Care Dock Manager Name Role Phone Sophie Magallon MD Primary Care Provider [phone] Favian Adan MD Unavailable [phone] Reason for Visit * Reason Onset Date Comments Error 06/18/2023 Encounter Details Date Type Department Care Team ([facility] st Contact Info) Description 06/18/2023 Telephone [facility] [address] [place], [place] [phone] Sophie Magallon MD [address] [place], [place] [phone] Error Social History Tobacco Use Types Packs/Day [...] Description 03/21/2025 2:15 PM EST Office Visit [facility]ULT D[facility] [address] [place] [address] Calli, Odilia [address] [place] [address] documented as of this encounter Visit Diagnoses Not on filedocumented in this encounter Care Teams Dock Manager Relationship Specialty Start Date End Date Sophie Magallon MD [address] [place] [address] PCP - General Family Medicine 07/31/22 Favian Adan MD 100 [place] [address] Otolaryngology 03/07/24 Dr. Dagmar Albright Gasteroenterology [place], [place] Gastroenterology 03/07/24 documented as of this encounter
--- OUTSIDE RECORDS SUMMARY | 2025-02-13 07:54 | XMS_ITS | Encounter Summary ---
Author Organization [facility] Address [address] [place] [address] Phone Care Team Providers Care Line Construction Engineer Name Role Phone Sophie Magallon MD Primary Care Provi sandro Encounter Details Date Type Department Care Team (Late st Contact Info) Description 03/19/2023 Procedure Pass [facility] Endoscopy Admitting Dept Virtual Department [address] [place] [address] Social History Tobacco Use Types Packs/Day Years [...] on filedocumented in this encounter Care Teams Line Construction Engineer Relationship Specialty Start Date End Date Naun, Sophie Jiménez MD [address] [place] [address] PCP - General Family Medicine 11/26/22 documented as of this encounter Additional Source Comments The information contained in this document represents components of the legal health record. It is not the complete legal health record.[facility]
--- OUTSIDE RECORDS SUMMARY | 2025-02-13 07:54 | XMS_ITS | Encounter Summary ---
Author Organization [employer] [facility] Address [address] [facility] 7t [place] [address] Care Team Providers Care Brass Plater Name Role Phone [place], Sophie GAY Primary Care Provider [phone] Favian Adan MD Unavailable [phone] Reason for Visit * Reason Onset Date Comments reschedule appt 06/06/2024 interceptor operator needed 06/06/2024 Encounter Details Date Type Department Care Team (Late st Contact Info) Description 06/06/2024 Telephone [facility] [address] [place] [address] Juan Ruby DDS [address] [place] [address] reschedule appt ; interceptor operator needed Social History Tobacco Use Types Packs/Day [...] an appointment due to provider. Patient needs interceptor operator. ER. * Telephone Encounter - Alpa Benjamin - 06/06/2024 3:09 PM EDT Betsy had appt on 06/07 that has to be rescheduled due to provider coming in late that day. He was offered 06/10 at 9 however he is unable to take that date. He needs something after 2pm. Informed patient that front office administrator will be informed He also asked that interceptor operator for tomorrows appt be cancelled. documented in this encounter Plan of Treatment Upcoming Encounters Date Type Department Care Team (Late st Contact Info) Description 03/21/2025 2:15 PM EST Office Visit [facility] [address] [place] [address] Odilia Mccurdy [address] [place] [address] documented as of this encounter Visit Diagnoses Not on filedocumented in this encounter Additional Health Concerns Assessment Noted Time PHQ-9 Depression Total Score: 1 10/21/19 24 11:21 AM EDT documented as of this encounter Care Teams Brass Plater Relationship Specialty Start Date End Date Sophie Magallon MD [address] [place] [address] PCP - General Family Medicine 07/31/22 Favian Adan MD [address] [place] [address] Otolaryngology 03/07/24 Dr. Dagmar Albright Gasteroenterology [place], [place] Gastroenterology 03/07/24 documented as of this encounter
--- OUTSIDE RECORDS SUMMARY | 2025-02-13 07:54 | XMS_ITS | Clinical Summary ---
Author Organization [facility] Address [address] [place] [address] Care Team Providers Care Public Health Staff Nurse Name Role Phone Sophie Magallon Reji Primary [...] 06/04/2023 01/05/2023, 12/03/2022 Alcohol/Substance Use Screening 02/24/2024 Influenza Vaccine (#1) 2024 12/03/2022 COVID-19 Vaccine (2024-2 6 season) 2024 DTaP,Tdap,and Td Vaccines (2 - Td or Tdap) 12/03/2032 12/03/2022 Pneumococcal Vaccine: Pediatric (0-5 Years) and At-Risk Patients (6-50 Years) Aged Out No longer eligible based on patient's age to complete this topic Insurance [address] [place] [address] [facility] [place]IM [place]INES [address] Care Teams Public Health Staff Nurse Relationship Specialty Start Date End Date Wilkinson, Sophie Mendoza [address] [place] [address] PCP - General Family Medicine 01/28/23
--- OUTSIDE RECORDS SUMMARY | 2025-02-13 07:54 | XMS_ITS | Encounter Summary ---
Author Organization [employer] [facility] Address [address] [place] [address] 7t [place] [address] Care Team Providers Care Child Care Giver Name Role Phone Sophie Magallon MD Primary Care Provider [phone] Favian Adan MD Unavailable [phone] Encounter Details Date Type Department Care Team (Late st Contact Info) Description 09/15/2022 Abstract [facility] [address] [place] [address] Sophie Magallon MD [address] [place] [address] Social History Tobacco Use Types Packs/Day Years [...] Description 03/21/2025 2:15 PM EST Office Visit [facility]ULT D[facility] [address] [place] [address] Odilia Mccurdy [address] [place] [address] documented as of this encounter Visit Diagnoses Not on filedocumented in this encounter Care Teams Child Care Giver Relationship Specialty Start Date End Date Sophie Magallon MD [address] [place] [address] PCP - General Family Medicine 07/31/22 Favian Adan MD [address] [facility] [place] [address] Otolaryngology 03/07/24 Dr. Dagmar Albright Gasteroenterology [place], [place] Gastroenterology 03/07/24 documented as of this encounter
== END 2025-02-13 07:53 | disposition home or self-care (01) ==
LOC: HO.XRAY 07:52
PROVIDERS: PCP Family Medicine; Visit Provider Nurse Practitioner Family
DX: R13.10 Dysphagia, unspecified (principal)
CPT/HCPCS: 74220; 74240

== ENCOUNTER → 2025-02-13 07:53 | Outpatient (BNV) | payer OTHER, SELFPAY | PROVIDERS: PCP Family Medicine; Visit Provider Radiology Diagnostic Radiology | DX: R13.10 Dysphagia, unspecified (principal) | CPT/HCPCS: 74221 ==